=== PATIENT | male | born 1950 | race Caucasian/White ===

== ENCOUNTER 2023-04-15 12:16 | Inpatient (IN) ==
--- NOTE | 2023-04-15 12:30 | Emergency Department Note ---
Impression & Plan Chest pain, Abnormal EKG, Aortic root dilatation ED Provider Note NAME: SILVANO RUTH AGE: 72 SEX: M : 1950 ARRIVES VIA: Ambulance INFORMANT: Patient, ED PROVIDER(S): Marcio Mcbride DO CHIEF COMPLAINT: Chest pain HPI: The patient is a 72-year-old male who presented to the emergency department with an acute onset of chest pain at 9:00 this morning. The patient was unsure why he was having this pain. He had pain across his shoulders and into his upper chest. He also had pain into his back. He states he started having pain in his upper abdomen as well. He took an antibiotic because he thought this might help. He started noticing difficulty swallowing. When prehospital personnel arrived they called medic command. They were unsure if this was an allergic reaction or cardiac issue. The patient received aspirin prior to arrival. He also received Benadryl Solu-Medrol and morphine. He states his pain is significantly improved at this time. He denies having any vomiting. He states he has no history of similar pain in the past ROS: See above HPI for pertinent positives & negatives. A total of 10 systems reviewed and were otherwise negative. PAST MEDICAL HISTORY: See Below PAST SURGICAL HISTORY: See Below FAMILY HISTORY: See Below SOCIAL HISTORY: See Below HOME MEDICATIONS: See Below ALLERGIES: See Below VITALS: See Below PHYSICAL EXAMINATION: GENERAL: Patient is awake alert in no acute distress patient is resting comfortably and showing no signs of anxiety EYES: The conjunctivae are clear. The pupils are round and reactive. EARS, NOSE, MOUTH AND THROAT: The nose is without any evidence of any deformity. Mucous membranes are moist. Tongue is midline. NECK: The neck is nontender and supple. RESPIRATORY: Normal respiratory effort is noted there is no evidence of wheezing rhonchi or rales CARDIOVASCULAR: Regular rate and rhythm noted there no murmurs rubs or gallops normal S1 normal S2. GASTROINTESTINAL: The abdomen is soft. Abdomen is nontender. PELVIS: The Pelvis is stable. No tenderness to palpation is noted. BACK: No midline tenderness or or step-off noted range of motion in flexion extension as well as rotation no signs of muscle spasm noted MUSCULOSKELETAL/EXTREMITIES: There is no evidence of gross deformity full range of motion is noted in the hips and shoulders. SKIN: There is no obvious evidence of any rash. There are no petechiae, pallor or cyanosis noted. NEUROLOGIC: Patient is awake alert and oriented x3 strength is symmetric patellar reflexes are 2+ bilaterally MEDICAL DECISION MAKING: The patient is a 72-year-old male who presented to the emergency department for chest pain. The patient had an acute onset of chest pain prior to arrival. The patient's initial EKG did show some nonspecific ST segment abnormalities. Prehospital EKG was also reviewed. There is no significant change compared to previous EKG on multiple EKG tracings obtained in the emergency department. Initial troponin was normal. Given the patient's history of an enlarged aortic root as well as his back pain radiographic studies were obtained to rule out dissection. The patient's condition was also treated with IV heparin as well as IV pain medication and Ativan. On reevaluation he was somewhat improved. I discussed patient's laboratory and radiographic studies with him. I discussed the limitations of the emergency department workup for chest pain with him. I also discussed his condition with the on-call [facility] hospitalist group as well as the on-call [facility] certified bench jeweler technician. Triage Nursing notes reviewed. Prior medical records reviewed Vital Signs: reviewed and remarkable for elevated blood pressure. Differential diagnosis: Cardiac ischemia, aortic dissection, pulmonary embolism, pneumothorax, pneumonia, pericarditis, myocarditis, esophageal rupture, GERD, cholecystitis, pancreatitis, musculoskeletal, as well as other pathologies. ER treatment provided: See below Diagnostics interpreted by me: ECG: EKG was obtained in the emergency department. My interpretation is normal sinus rhythm at 91 bpm. There is no ectopy. Inferior and lateral ST depressions were noted. This was compared to a tracing from May 22, 2021. No changes were noted. Prehospital EKG was reviewed. My interpretation is sinus tachycardia at 101 bpm. There is no ectopy. Inferior and lateral ST depressions were noted. This compares similar to the tracing obtained in the emergency department. A second EKG was obtained in the emergency department. My interpretation is normal sinus rhythm at 100 bpm. There was no ectopy. ST segment depression was noted in the apical and low lateral leads. This appears similar but may be somewhat increased compared to the earlier tracing obtained in the emergency department. Cardiac Monitoring: An order was placed for continuous cardiac monitoring. The monitor shows a rate of 87 bpm with sinus rhythm. Laboratory studies: As stated above and show below. Imaging studies: See below. Radiographic imaging was reviewed by myself Consultation(s): I discussed this case with Dr. Chopra who is on-call for the [facility] hospitalist group. I discussed this case with Dr. Valle who is on-call for the [facility] cardiology group. ED COURSE: Procedures: none Critical Care: I have personally spent greater than 45 minutes of critical care time in the direct management of this patient. This includes bedside care, interpretation of diagnostic studies, and testing, discussion with consultants, patient, and family members, and other required patient management activities. This 45 minutes is in excess of all separately billable procedures. Past Med/Surg History Medical History Cervical disc disorder with myelopathy Collapsed lung S/p most recent cervical fusion 05/18/2021 - right thoravent placed @ [facility] ER 05/24/21 for right sided pneumothorax (resolution of pneumothorax per 05/26/21 CXR) Hypertension Incomplete right bundle branch block (RBBB) Follows w/ Dr Elizondo last visit 04/2021 Enlarged aorta F/U DR ELIZONDO ANNUALLY- BORDERLINE ENLARGEMENT OF ASCENDING AORTA (3.8CM) AND AORTIC ROOT (3.9CM) PER 11/03/20 ECHO Spinal stenosis PAIN TO BILAT LEGS Hyperlipidemia Surgical History S/P cataract extraction b/l S/P chest tube placement 05/2021 [facility] S/P inguinal hernia repair S/P laminectomy Pilonidal cyst REMOVAL OF S/P wrist surgery GANGLION Hx of hand surgery R/L History of repair of rotator cuff R/L Fusion of spine CERVICAL-x 3 last one 04/2021 @ [facility] History of colonoscopy Family History Brother Prostate cancer Hypertension Social History Smoking Status: Former smoker Second Hand Exposure: No; Do You Dip or Chew Tobacco: No; Hx Alcohol Use: Yes Alcohol type: beer Hx Substance Use: No Preferred Language: Divehi Communication Ability: Effective Operations Expert Required: No Beliefs That Will Affect Care: None Current Living Situation: Spouse current occupational status: employed Feels Safe at Home: Yes Assistive Devices: Glasses and Hearing Aid - Bilateral Allergies Allergies Allergy/AdvReac Type Severity Reaction Status Date / Time No Known Allergies Allergy Unknown NO Verified 04/03/23 10:24 Home Meds Home Medications Medication Instructions Recorded Confirmed ascorbic acid (vitamin C) 500 mg 1,000 mg PO QAM 04/11/19 04/03/23 tablet (Vitamin C) cholecalciferol (vitamin D3) 25 1,000 unit PO QAM 04/11/19 04/03/23 mcg (1,000 unit) capsule (Vitamin D3) cyanocobalamin (vitamin B-12) 500 500 mcg PO QAM 04/11/19 04/03/23 mcg tablet glucosamine sulf dipot 1 cap PO QAM 04/11/19 04/03/23 chlr,msm,chond 550 mg-C 30 mg-jes 1 mg capsule (Glucosamine Chondroitin) multivitamin 1 tab PO QAM 04/11/19 04/03/23 atorvastatin 20 mg tablet (Lipitor) 20 mg PO QDL 05/22/21 04/03/23 lisinopril 10 mg tablet 10 mg PO QAM 05/22/21 04/03/23 finasteride 5 mg tablet 5 mg PO 04/03/23 04/03/23 Previous Rx's Medication Instructions Recorded vibegron 75 mg tablet 75 mg PO DAILY #90 tabs 04/03/23 Results & Data (ED) Vital Signs Vital Signs - 24 hr 04/15/23 12:25 04/15/23 12:25 04/15/23 13:00 Temperature 37.2 C Temperature Source Oral Pulse Rate 97 H 96 H Pulse Rate from SpO2 Sensor Pulse Rhythm Regular Pulse Strength Normal Respiratory Rate 20 Respiratory Effort / Characteristics Non-Labored Respiratory Depth Normal Respiratory Pattern Regular Blood Pressure 211/97 H Blood Pressure Mean 135 Pulse Oximetry 97 97 Oxygen Delivery Method Room Air Room Air Sepsis Recent Fever Within 48 Hours No Sepsis New/Unexplained Change in Mental Status No Sepsis Action Taken by Nursing No Action Required 04/15/23 13:00 04/15/23 14:00 Temperature Temperature Source Pulse Rate 94 H 87 Pulse Rate from SpO2 Sensor 94 H 87 Pulse Rhythm Pulse Strength Respiratory Rate 23 15 Respiratory Effort / Characteristics Respiratory Depth Respiratory Pattern Blood Pressure 180/104 H 141/101 H Blood Pressure Mean 129 114 Pulse Oximetry 97 100 Oxygen Delivery Method Sepsis Recent Fever Within 48 Hours Sepsis New/Unexplained Change in Mental Status Sepsis Action Taken by Skilled Nursing Medications Current Medication List: was personally reviewed by me Laboratory Data Attestation: I reviewed the patient's lab results. 04/15/23 12:24 04/15/23 12:24 Lab Results 04/15/23 04/15/23 Range/Units 12:24 12:29 WBC 8.66 (4.8-10.8) K/ul RBC 4.50 L (4.70-6.10) M/uL Hgb 13.5 L (14.0-18.0) g/dl POC Hgb 13.6 L (14.0-18.0) g/dl Hct 39.5 L (42.0-52.0) % POC Hct 40 L (42-52) % MCV 87.8 (80.0-100.0) fL MCH 30.0 (25.0-34.0) pg MCHC 34.2 (32.0-36.0) g/dL RDW Std Deviation 38.1 (36.4-46.3) fL RDW Coeff of Gael 11.8 (11.5-14.5) % Plt Count 177 (130-400) K/uL MPV 9.5 (9.4-12.4) fL Immature Gran % (Auto) 0.1 % Neut % (Auto) 75.2 % Lymph % (Auto) 17.0 % Sutter % (Auto) 6.7 % Eos % (Auto) 0.5 % Baso % (Auto) 0.5 % Neut # (Auto) 6.52 H (1.40-6.50) K/uL Lymph # (Auto) 1.47 (1.20-3.40) K/uL Sutter # (Auto) 0.58 (0.11-0.59) K/uL Eos # (Auto) 0.04 (0.00-0.50) K/uL Baso # (Auto) 0.04 (0.00-0.20) K/uL Immature Gran # (Auto) 0.01 (0.01-0.20) K/uL POC Sodium 141 (135-144) mmol/L Sodium 139 (136-145) mmol/L POC Potassium 3.9 (3.3-5.0) mmol/L Potassium 3.8 (3.5-5.1) mmol/L POC Chloride 103 (101-112) mmol/L Chloride 104 (98-107) mmol/L Carbon Dioxide 26 (21-32) mmol/L POC Total CO2 28 (24-31) mmol/L Anion Gap 9 (3-11) POC Anion Gap 15.0 L (16-25) mmol/L POC BUN 19 H (7-18) mg/dl BUN 20 (6-23) mg/dl Creatinine 0.76 (0.6-1.4) mg/dl POC Creatinine 0.7 (0.6-1.3) mg/dl Est Cr Clr Drug Dosing 103.0 ml/min Est GFR ( Amer) 104.9 ml/min Est GFR (Non-Af Amer) 90.5 ml/min BUN/Creatinine Ratio 26.3 H (10-20) Glucose 185 H (70-99(Fasting)) mg/dl POC Glucose (other) 191 H (70-99) mg/dl Calcium 9.2 (8.6-10.3) mg/dl POC Ioniz Calcium Caity 1.17 (1.12-1.32) mmol/l Total Bilirubin 0.6 (0.2-1.0) mg/dl AST 18 (13-39) U/L ALT 19 (7-52) U/L Alkaline Phosphatase 59 (34-104) U/L Troponin I High Sens 3.7 (0-20) pg/ml Total Protein 7.4 (6.0-8.3) gm/dl Albumin 4.5 (3.4-5.0) gm/dl Globulin 2.9 (2.5-4.0) gm/dl Albumin/Globulin Ratio 1.6 (0.9-2) Lipase 27 (11-82) U/L Administered Medications Heparin Sodium/Dextrose (Heparin Sodium/Dextrose) 25,000 units in 500 mls @ 20 mls/hr IV .Q24H [facility]; Protocol Stop: 05/15/23 14:14 Last Admin: 04/15/23 14:36 Dose: 1,000 units/hr, 20 mls/hr Documented By: MILAN Co-signed By: OAC Discontinued Medications Heparin Sodium (Porcine) (Heparin Sod (Porcine) 1000 Unit/Ml) 1 units IV NOW ONE Stop: 04/15/23 14:12 Last Admin: 04/15/23 14:36 Dose: 4,000 units Documented By: MILAN Co-signed By: CRIS Sodium Chloride (Nss) 500 mls @ 999 mls/hr IV .Q31M STA Stop: 04/15/23 12:52 Last Infusion: 04/15/23 13:28 Dose: Infused Documented By: Admin: 04/15/23 12:32 Dose: 999 mls/hr Documented By: CRIS Ioversol (Optiray 320 125ml) 118 ml IV ONCE ONE Stop: 04/15/23 12:42 Last Admin: 04/15/23 12:41 Dose: 118 ml Documented By: RONI Lorazepam (Lorazepam 1 Mg/1 Ml Syr Ed Inj Use) 1 mg IV ONE STA Stop: 04/15/23 13:29 Last Admin: 04/15/23 13:33 Dose: 1 mg Documented By: CRIS Morphine Sulfate (Morphine Sulfate 4 Mg/Ml 1 Ml Carp\Vial) 4 mg IV NOW STA Stop: 04/15/23 12:24 Last Admin: 04/15/23 12:31 Dose: 4 mg Documented By: CRIS Morphine Sulfate (Morphine Sulfate 4 Mg/Ml 1 Ml Carp\Vial) 4 mg IV NOW STA Stop: 04/15/23 13:29 Last Admin: 04/15/23 13:33 Dose: 4 mg Documented By: CRIS Ondansetron HCl (Ondansetron Inj 2 Mg/Ml 2 Ml Vial) 4 mg IV NOW STA Stop: 04/15/23 12:24 Last Admin: 04/15/23 12:31 Dose: 4 mg Documented By: CRIS Imaging Data Attestation: I personally reviewed and interpreted this imaging study as follows: My Impression: CT scanning of the chest abdomen pelvis was reviewed by myself. My interpretation is enlargement of the ascending aorta, there is no free air, there is no signs of bowel obstruction, final report below. Radiologist's Impression: Abdomen/Pelvis CT 04/15/23 12:22 CT SCAN OF THE ABDOMEN AND PELVIS WITH IV CONTRAST CLINICAL HISTORY: Generalized abdominal pain. COMPARISON STUDY: No priors. TECHNIQUE: Following the IV administration of 118 cc of Optiray 320, CT scan of the abdomen and pelvis is performed from the lung bases to the proximal femora. Images are reviewed in the axial, sagittal, and coronal planes. IV contrast was administered without complication. A dose lowering technique was utilized adhering to the principles of ALARA. The examination is degraded by motion artifact, as well as by streak artifact from the arms which could not be elevated above the abdomen. FINDINGS: Lung bases: The heart is normal in size and without pericardial effusion. Emphysematous change is noted. There is bibasilar scarring/atelectasis. The lung bases are otherwise clear. Liver: The contrast-enhanced liver is normal in size and contour. The liver demonstrates diffusely diminished attenuation indicating steatosis. Fatty sparing is seen adjacent to the gallbladder fossa. There is no intrahepatic biliary ductal dilatation. The hepatic veins and portal veins are patent. A 2.4 cm hemangioma seen on image #20 and 13 of the concurrently performed chest CT. Gallbladder: Unremarkable. Spleen: Normal in size and attenuation. There are calcifications of the splenic capsule. Pancreas: Unremarkable. Adrenal glands: Unremarkable. Kidneys: The contrast enhanced kidneys are normal in size and without hydronephrosis. The kidneys enhance symmetrically. A 5.8 cm cyst is seen on the left. Abdominal vasculature: The abdominal aorta is normal in course and caliber noting moderate to advanced atherosclerotic calcification. Bowel: There is moderate to advanced colic diverticulosis without CT evidence of acute diverticulitis. No bowel obstruction is seen. The appendix is well- visualized and normal. Peritoneum: There is no intraperitoneal free air or abdominal ascites. There is a fat-containing umbilical hernia. Lymphadenopathy: There is a mildly enlarged gastrohepatic node seen on image #82. This measures 11 mm short axis. No Additional enlarged lymph nodes are seen in the abdomen or pelvis. Pelvic viscera: The prostate gland is diminutive and heterogeneous. The bladder wall appears thickened/trabeculated indicating chronic outlet obstruction. Skeletal structures: The skeletal structures are osteopenic. There is mild lumbosacral spondylosis. No lytic or blastic lesions are seen. IMPRESSION: 1. No acute infectious or inflammatory findings are identified in the abdomen or pelvis. 2. Hepatic steatosis. 3. A mildly enlarged upper abdominal lymph node is of indeterminate etiology and significance. Clinical correlation will be required. 4. Colonic diverticulosis without CT evidence of acute diverticulitis. 5. Additional findings as above. ACT 112: Negative or not required by law. Electronically signed by: Jerry Ni M.D. 04/15/2023 1:00 PM Chest CTA 04/15/23 12:22 CT ANGIOGRAM OF THE CHEST COMBO CLINICAL HISTORY: Atypical chest pain. Back pain. COMPARISON STUDY: Chest x-ray dated 05/24/2021. TECHNIQUE: Before and following the IV administration of 118 cc of Optiray 320, CT angiogram of the chest was performed from the thoracic inlet to the upper abdomen utilizing the dissection protocol. Images are reviewed in the axial, sagittal, and coronal planes. 3-D MIPS images are created and assessed. IV contrast was administered without complication. A dose lowering technique was utilized adhering to the principles of ALARA. The examination is degraded by motion artifact, as well as by streak artifact from the arms which could not be elevated above the chest. CT DOSE: 4158.18 mGy.cm FINDINGS: Thyroid: Imaged portions of the thyroid gland are normal in size and attenuation. Thoracic aorta: No intramural hematoma is seen on the unenhanced series. There is atherosclerotic calcification of the thoracic aorta, which is normal in caliber and demonstrates bovine variant arch anatomy. No dissection is seen. The arch vessels are widely patent. Pulmonary vasculature: The pulmonary trunk is normal in caliber. There are no central filling defects identified in the pulmonary vessels to suggest pulmonary embolus. Note that this examination was not specifically protocoled to assess for pulmonary emboli. Heart: The heart is top normal in size and without pericardial effusion. The coronary arteries are densely calcified. Lungs and pleural spaces: Emphysematous change is noted. There is no airspace consolidation or pleural effusion. The trachea and central airways are clear. Foci of probable scarring are seen throughout both lungs, greatest at the lung bases. Subpleural scarring and calcified pleural plaque is seen in the anterior left lung. Subsolid pleural thickening is seen along the minor fissure on image #143. This measures up to 2.3 cm in length. Mediastinum: There is no mediastinal lymphadenopathy. Ruthann: Clear. Axillae: There is no axillary lymphadenopathy. Upper abdomen: A 2.4 cm hepatic hemangioma as seen on image #213. The liver appears stated ptotic. A mildly enlarged gastrohepatic node measures 11 mm short axis as seen on image #249. Skeletal structures: The skeletal structures are osteopenic. No lytic or blastic bony lesions are seen. Fusion hardware is noted at the cervicothoracic junction. Advanced arthritic change is seen in the shoulders. IMPRESSION: 1. Unremarkable CT angiogram of the thoracic aorta. 2. Emphysema. 3. There is no airspace consolidation typical for pneumonia or pleural effusion. 4. There is a focus of subsolid pleural thickening on the right minor fissure as above. This is not highly suspicious; however, a precautionary 6-month follow-up chest CT is recommended for reassessment. 5. Advanced coronary artery atherosclerosis. 6. Additional findings as above. ACT 112: Positive. There are findings on this exam that require communication between the performing entity and the patient following Patient Test Result Information Act ([place] Act 112) guidelines. Electronically signed by: Jerry Ni M.D. 04/15/2023 1:08 PM Discharge Plan Visit Data Chief Complaint: Chest Pain ED Provider: Marcio Mcbride Discharge Problem: Chest pain, Abnormal EKG, Aortic root dilatation Patient Disposition: Being Evaluated by Hospitalist Forms Stand Alone Forms: [facility] Prescriptions Prescriptions: No Action vibegron 75 mg tablet 75 mg PO DAILY Qty: 90 3RF finasteride 5 mg tablet 5 mg PO multivitamin Tablet 1 tab PO QAM ascorbic acid (vitamin C) [Vitamin C] 500 mg Tablet 1,000 mg PO QAM cholecalciferol (vitamin D3) [Vitamin D3] 25 mcg (1,000 unit) Capsule 1,000 unit PO QAM Glucosamine Chondroitin 550-30-1 mg Capsule 1 cap PO QAM Patient Comments: 1500 mg daily cyanocobalamin (vitamin B-12) 500 mcg Tablet 500 mcg PO QAM lisinopril 10 mg tablet 10 mg PO QAM atorvastatin [Lipitor] 20 mg tablet 20 mg PO QDL Referrals Referrals: Eric Lindquist MD [Primary Care Provider] - Discharge Problem: Chest pain Qualifiers: Chest pain type: unspecified Qualified Code(s): R07.9 - Chest pain, unspecified
[2023-04-15] MEDS: ONDANSETRON INJ 2 MG/ML 2 ML VIAL IV STA (12:31)
[2023-04-15] MEDS: MoRPHine SULFATE 4 MG/ML 1 ML CARP\\VIAL IV STA ×2 (12:31→13:33)
[2023-04-15] MEDS: SODIUM CHLORIDE 0.9% 500 ML IV STA (12:32)
[2023-04-15] MEDS: OPTIRAY 320 125ml IV ONE (12:41)
[2023-04-15 12:42] LABS: iSTAT Creatinine 0.7 mg/dl (0.6-1.3); iSTAT Hemoglobin 13.6 g/dl (14.0-18.0); iSTAT Ionized Calcium 1.17 mmol/l (1.12-1.32); iSTAT Potassium 3.9 mmol/L (3.3-5.0)
[2023-04-15 12:53] LABS: Basophils # (auto) 0.04 K/uL (0.00-0.20); Basophils % (auto) 0.5 %; Eosinophils # (auto) 0.04 K/uL (0.00-0.50); Eosinophils % (auto) 0.5 %; Hematocrit (blood only) 39.5 % (42.0-52.0); Hemoglobin 13.5 g/dl (14.0-18.0); Immature Granulocytes # (auto) 0.01 K/uL (0.01-0.20); Immature Granulocytes % (auto) 0.1 %; Lymphocytes # (auto) 1.47 K/uL (1.20-3.40); Mean Corpuscular Hgb Conc 34.2 g/dL (32.0-36.0); Mean Corpuscular Volume 87.8 fL (80.0-100.0); Mean Platelet Volume 9.5 fL (9.4-12.4); Monocytes # (auto) 0.58 K/uL (0.11-0.59); Monocytes % (auto) 6.7 %; Neutrophils # (auto) 6.52 K/uL (1.40-6.50); Neutrophils % (auto) 75.2 %; Platelet Count 177 K/uL (130-400); RDW Coefficient of Variation 11.8 % (11.5-14.5); RDW Standard Deviation 38.1 fL (36.4-46.3); White Blood Count 8.66 K/ul (4.8-10.8)
--- NOTE | 2023-04-15 13:02 | CT Scan Report ---
CT SCAN OF THE ABDOMEN AND PELVIS WITH IV CONTRAST CLINICAL HISTORY: Generalized abdominal pain. COMPARISON STUDY: No priors. TECHNIQUE: Following the IV administration of 118 cc of Optiray 320, CT scan of the abdomen and pelv is is performed from the lung bases to the proximal femora. Images are reviewed in the axial, sagitta l, and coronal planes. IV contrast was administered without complication. A dose lowering technique w as utilized adhering to the principles of ALARA. The examination is degraded by motion artifact, as w ell as by streak artifact from the arms which could not be elevated above the abdomen. FINDINGS: Lung bases: The heart is normal in size and without pericardial effusion. Emphysematous change is not ed. There is bibasilar scarring/atelectasis. The lung bases are otherwise clear. Liver: The contrast-enhanced liver is normal in size and contour. The liver demonstrates diffusely di minished attenuation indicating steatosis. Fatty sparing is seen adjacent to the gallbladder fossa. T here is no intrahepatic biliary ductal dilatation. The hepatic veins and portal veins are patent. A 2 .4 cm hemangioma seen on image #20 and 13 of the concurrently performed chest CT. Gallbladder: Unremarkable. Spleen: Normal in size and attenuation. There are calcifications of the splenic capsule. Pancreas: Unremarkable. Adrenal glands: Unremarkable. Kidneys: The contrast enhanced kidneys are normal in size and without hydronephrosis. The kidneys enh ance symmetrically. A 5.8 cm cyst is seen on the left. Abdominal vasculature: The abdominal aorta is normal in course and caliber noting moderate to advance d atherosclerotic calcification. Bowel: There is moderate to advanced colic diverticulosis without CT evidence of acute diverticulitis . No bowel obstruction is seen. The appendix is well-visualized and normal. Peritoneum: There is no intraperitoneal free air or abdominal ascites. There is a fat-containing umbi lical hernia. Lymphadenopathy: There is a mildly enlarged gastrohepatic node seen on image #82. This measures 11 mm short axis. No Additional enlarged lymph nodes are seen in the abdomen or pelvis. Pelvic viscera: The prostate gland is diminutive and heterogeneous. The bladder wall appears thickene d/trabeculated indicating chronic outlet obstruction. Skeletal structures: The skeletal structures are osteopenic. There is mild lumbosacral spondylosis. N o lytic or blastic lesions are seen. IMPRESSION: 1. No acute infectious or inflammatory findings are identified in the abdomen or pelvis. 2. Hepatic steatosis. 3. A mildly enlarged upper abdominal lymph node is of indeterminate etiology and significance. Clinic al correlation will be required. 4. Colonic diverticulosis without CT evidence of acute diverticulitis. 5. Additional findings as above. ACT 112: Negative or not required by law. Electronically signed by: Jerry Ni M.D. 04/15/2023 1:00 PM
--- NOTE | 2023-04-15 13:10 | CT Scan Report ---
CT ANGIOGRAM OF THE CHEST COMBO CLINICAL HISTORY: Atypical chest pain. Back pain. COMPARISON STUDY: Chest x-ray dated 05/24/2021. TECHNIQUE: Before and following the IV administration of 118 cc of Optiray 320, CT angiogram of the c hest was performed from the thoracic inlet to the upper abdomen utilizing the dissection protocol. Im ages are reviewed in the axial, sagittal, and coronal planes. 3-D MIPS images are created and assesse d. IV contrast was administered without complication. A dose lowering technique was utilized adherin g to the principles of ALARA. The examination is degraded by motion artifact, as well as by streak ar tifact from the arms which could not be elevated above the chest. CT DOSE: 4158.18 mGy.cm FINDINGS: Thyroid: Imaged portions of the thyroid gland are normal in size and attenuation. Thoracic aorta: No intramural hematoma is seen on the unenhanced series. There is atherosclerotic lennox cification of the thoracic aorta, which is normal in caliber and demonstrates bovine variant arch patrizia daniel. No dissection is seen. The arch vessels are widely patent. Pulmonary vasculature: The pulmonary trunk is normal in caliber. There are no central filling defects identified in the pulmonary vessels to suggest pulmonary embolus. Note that this examination was not specifically protocoled to assess for pulmonary emboli. Heart: The heart is top normal in size and without pericardial effusion. The coronary arteries are de nsely calcified. Lungs and pleural spaces: Emphysematous change is noted. There is no airspace consolidation or pleura l effusion. The trachea and central airways are clear. Foci of probable scarring are seen throughout both lungs, greatest at the lung bases. Subpleural scarring and calcified pleural plaque is seen in t he anterior left lung. Subsolid pleural thickening is seen along the minor fissure on image #143. Thi s measures up to 2.3 cm in length. Mediastinum: There is no mediastinal lymphadenopathy. Ruthann: Clear. Axillae: There is no axillary lymphadenopathy. Upper abdomen: A 2.4 cm hepatic hemangioma as seen on image #213. The liver appears stated ptotic. A mildly enlarged gastrohepatic node measures 11 mm short axis as seen on image #249. Skeletal structures: The skeletal structures are osteopenic. No lytic or blastic bony lesions are see n. Fusion hardware is noted at the cervicothoracic junction. Advanced arthritic change is seen in the shoulders. IMPRESSION: 1. Unremarkable CT angiogram of the thoracic aorta. 2. Emphysema. 3. There is no airspace consolidation typical for pneumonia or pleural effusion. 4. There is a focus of subsolid pleural thickening on the right minor fissure as above. This is not h ighly suspicious; however, a precautionary 6-month follow-up chest CT is recommended for reassessment . 5. Advanced coronary artery atherosclerosis. 6. Additional findings as above. ACT 112: Positive. There are findings on this exam that require communication between the performing entity and the patient following Patient Test Result Information Act ([place] Act 112) guidelines. Electronically signed by: Jerry Ni M.D. 04/15/2023 1:08 PM
[2023-04-15 13:11] LABS: Albumin Globulin Ratio 1.6 (0.9-2); Albumin Level 4.5 gm/dl (3.4-5.0); BUN Creatinine Ratio 26.3 (10-20); Bilirubin,Total 0.6 mg/dl (0.2-1.0); Calcium 9.2 mg/dl (8.6-10.3); Est GFR (African American) 104.9 ml/min; Est GFR (Non-African American) 90.5 ml/min; Globulin 2.9 gm/dl (2.5-4.0); Potassium 3.8 mmol/L (3.5-5.1); Total Protein 7.4 gm/dl (6.0-8.3)
[2023-04-15 13:18] LABS: Troponin I High Sensitivity 3.7 pg/ml (0-20)
[2023-04-15] MEDS: LORazepam 1 MG/1 ML SYR ED Inj Use IV STA (13:33)
--- NOTE | 2023-04-15 14:25 | History & Physical Report ---
Date of Service April 15, 2023 Assessment & Plan (1) Chest pain: Plan: 70-year-old male with past medical history significant for hyperlipidemia, enlarged thoracic aorta, history of non-rheumatic mitral regurgitation, incomplete right bundle-branch block, hypertension, BPH, overactive bladder, osteoarthritis, lumbar radiculopathy, HTN, cervical spine stenosis, lumbar spinal stenosis, history of colonic polyps, overweight, chronic b/l shoulder pain, Hx Pneumothorax present to the ED with chest pain Pain seems to be related to chronic shoulders pain that worsening after lifting heavy object Need to r/o ACS Troponin wnl x2 CTA chest showed unremarkable CT angiogram of the thoracic aorta. CT abd/pelvis showed no acute infectious or inflammatory findings are identified in the abdomen or pelvis. IV heparin drip was started in the ER due to ongoing chest pain and shoulders pain Received IV morphine in the ER that helped Pt is getting a stat ECHO Will trend troponin case discussed with cardiology- Low suspicious for cardiac etiology chest pain since troponin x2 negative and echo as per cardiology normal If 3r set of troponin negative, will d/c heparin drip Continue morphine and tylenol for pain Will monitor closely in telemetry Elevated glucose Will check Hb A1c Continue monitor glucose Elevated WBC Possible reactive No sign of infection Continue monitor CBC Chronic shoulders pain Cervical pain Lumbar spine pain Continue pain control with tylenol and morphine prn History of hyperlipidemia Continue statin. History of hypertension BP stable Continue lisinopril. BPH Continue proscar Will monitor for any urinary retention. Deep venous thrombosis prophylaxis Currently on heparin drip Code status Full code History of Present Illness Chief Complaint: Chest pain Primary Care Provider: Eric Lindquist MD 70-year-old male with past medical history significant for hyperlipidemia, enlarged thoracic aorta, history of non-rheumatic mitral regurgitation, incomplete right bundle-branch block, hypertension, BPH, overactive bladder, osteoarthritis, lumbar radiculopathy, HTN, cervical spine stenosis, lumbar spinal stenosis, history of colonic polyps, overweight, chronic b/l shoulder pain, Hx Pneumothorax present to the ED with chest pain. Pt said that this morning while walking to his properties he developed left side shoulder pain, then right sided shoulder pain. he said that he has chronic shoulder pain, but today the pain were intense then associated with chest pain. Pt described the chest pain as a sharp and burning feeling that located in the mid sternum area. Pt said chest pain and shoulders pain started 5 minutes after lifting about 50 lbs weight. said that he is not supposed to lift any heavy object. Pt replied that he thinks it was about 35 lbs. Pt said that he feels he had some breathing problems. Morphine IV given in the ER, helped with the pain. Currently denies any fever, chills, dizziness, palpitation and SOB and dysuria. CT showed unremarkable CT angiogram of the thoracic aorta. no airspace consolidation typ ical for pneumonia or pleural effusion. focus of subsolid pleural thickening on the right minor fissure. CT abd/pelvis showed no acute infectious or inflammatory findings are identified in the abdomen or pelvis. Lab showed normal troponin, lipase, LFT. EKG showed no acute ischemic changes. Due to ongoing chest discomfort, pt was starting on IV heparin drip by the ER provider Allergies Allergy/AdvReac Type Severity Reaction Status Date / Time vibegron AdvReac Intermediate Flushing Verified 04/15/23 14:45 Home Medications Medication Instructions Recorded Confirmed Type ascorbic acid (vitamin C) 500 mg 1,000 mg PO QAM 04/11/19 04/15/23 History tablet (Vitamin C) cholecalciferol (vitamin D3) 25 1,000 unit PO QAM 04/11/19 04/15/23 History mcg (1,000 unit) capsule (Vitamin D3) cyanocobalamin (vitamin B-12) 500 500 mcg PO QAM 04/11/19 04/15/23 History mcg tablet glucosamine sulf dipot 1 cap PO QAM 04/11/19 04/15/23 History chlr,msm,chond 550 mg-C 30 mg-jes 1 mg capsule (Glucosamine Chondroitin) multivitamin 1 tab PO QAM 04/11/19 04/15/23 History atorvastatin 20 mg tablet (Lipitor) 20 mg PO QPM 05/22/21 04/15/23 History lisinopril 10 mg tablet 10 mg PO QAM 05/22/21 04/15/23 History finasteride 5 mg tablet 5 mg PO QAM 04/03/23 04/15/23 History vibegron 75 mg tablet 75 mg PO DAILY #90 tabs 04/03/23 04/03/23 Rx Past Med/Surg History Medical History Cervical disc disorder with myelopathy Collapsed lung S/p most recent cervical fusion 05/18/2021 - right thoravent placed @ [facility] ER 05/24/21 for right sided pneumothorax (resolution of pneumothorax per 05/26/21 CXR) Hypertension Incomplete right bundle branch block (RBBB) Follows w/ Dr Elizondo last visit 04/2021 Enlarged aorta F/U DR ELIZONDO ANNUALLY- BORDERLINE ENLARGEMENT OF ASCENDING AORTA (3.8CM) AND AORTIC ROOT (3.9CM) PER 11/03/20 ECHO Spinal stenosis PAIN TO BILAT LEGS Hyperlipidemia Surgical History S/P cataract extraction b/l S/P chest tube placement 05/2021 [facility] S/P inguinal hernia repair S/P laminectomy Pilonidal cyst REMOVAL OF S/P wrist surgery GANGLION Hx of hand surgery R/L History of repair of rotator cuff R/L Fusion of spine CERVICAL-x 3 last one 04/2021 @ [facility] History of colonoscopy Family History Brother Prostate cancer Hypertension Social History Smoking Status: Former smoker Second Hand Exposure: No; Do You Dip or Chew Tobacco: No; Hx Alcohol Use: Yes Alcohol type: beer Hx Substance Use: No Preferred Language: Maori Communication Ability: Effective Check Scaler Required: No Beliefs That Will Affect Care: None Current Living Situation: Spouse current occupational status: employed Feels Safe at Home: Yes Assistive Devices: Glasses and Hearing Aid - Bilateral Review of Systems Review of Systems: All systems reviewed & are unremarkable except as noted in HPI & below Physical Exam Physical Exam: General- No acute distress Head- atraumatic Eyes- PERRL, EOMI, ENT- oropharynx clear Neck- supple, no JVD Lungs- clear to auscultation Heart- regular rhythm; Abdomen- normal bowel sounds, soft, +tender with deep palpation Extremities- no calf tenderness, left shoulder pain with palpation Neuro- alert, oriented x 3; PERRL, EOMI; no facial palsy; no dysarthria Skin- warm & dry Results & Data Results & Data Vital Signs (Past 12 Hours) Vital Signs Temp Pulse Resp BP Pulse Ox O2 Del Method 04/15/23 14:00 87 15 141/101 H 100 04/15/23 13:00 94 H 23 180/104 H 97 04/15/23 13:00 96 H 04/15/23 12:25 97 Room Air 04/15/23 12: 37.2 C 97 H 20 211/97 H 97 Room Air Diagnostic Findings Laboratory Results WBC 8.66 K/ul (4.8-10.8) 04/15/23 12: RBC 4.50 M/uL (4.70-6.10) L 04/15/23 12:24 Hgb 13.5 g/dl (14.0-18.0) L 04/15/23 12: POC Hgb 13.6 g/dl (14.0-18.0) L 04/15/23 12:29 Hct 39.5 % (42.0-52.0) L 04/15/23 12: POC Hct 40 % (42-52) L 04/15/23 12: MCV 87.8 fL (80.0-100.0) 04/15/23 12: MCH 30.0 pg (25.0-34.0) 04/15/23 12: MCHC 34.2 g/dL (32.0-36.0) 04/15/23 12: RDW Std Deviation 38.1 fL (36.4-46.3) 04/15/23 12: RDW Coeff of Gael 11.8 % (11.5-14.5) 04/15/23 12: Plt Count 177 K/uL (130-400) 04/15/23 12: MPV 9.5 fL (9.4-12.4) 04/15/23 12:24 Immature Gran % (Auto) 0.1 % 04/15/23 12:24 Neut % (Auto) 75.2 % 04/15/23 12:24 Lymph % (Auto) 17.0 % 04/15/23 12: Millard % (Auto) 6.7 % 04/15/23 12:24 Eos % (Auto) 0.5 % 04/15/23 12:24 Baso % (Auto) 0.5 % 04/15/23 12:24 Neut # (Auto) 6.52 K/uL (1.40-6.50) H 04/15/23 12:24 Lymph # (Auto) 1.47 K/uL (1.20-3.40) 04/15/23 12:24 Millard # (Auto) 0.58 K/uL (0.11-0.59) 04/15/23 12:24 Eos # (Auto) 0.04 K/uL (0.00-0.50) 04/15/23 12:24 Baso # (Auto) 0.04 K/uL (0.00-0.20) 04/15/23 12:24 Immature Gran # (Auto) 0.01 K/uL (0.01-0.20) 04/15/23 12:24 APTT 22 Seconds (21-31) 04/15/23 14:22 PTT Ratio 0.8 04/15/23 14:22 POC Sodium 141 mmol/L (135-144) 04/15/23 12:29 Sodium 139 mmol/L (136-145) 04/15/23 12:24 POC Potassium 3.9 mmol/L (3.3-5.0) 04/15/23 12:29 Potassium 3.8 mmol/L (3.5-5.1) 04/15/23 12:24 POC Chloride 103 mmol/L (101-112) 04/15/23 12:29 Chloride 104 mmol/L (98-107) 04/15/23 12:24 Carbon Dioxide 26 mmol/L (21-32) 04/15/23 12:24 POC Total CO2 28 mmol/L (24-31) 04/15/23 12:29 Anion Gap 9 (3-11) 04/15/23 12:24 POC Anion Gap 15.0 mmol/L (16-25) L 04/15/23 12:29 POC BUN 19 mg/dl (7-18) H 04/15/23 12:29 BUN 20 mg/dl (6-23) 04/15/23 12:24 Creatinine 0.76 mg/dl (0.6-1.4) 04/15/23 12:24 POC Creatinine 0.7 mg/dl (0.6-1.3) 04/15/23 12:29 Est Cr Clr Drug Dosing 103.0 ml/min 04/15/23 12:24 Est GFR ( Amer) 104.9 ml/min 04/15/23 12:24 Est GFR (Non-Af Amer) 90.5 ml/min 04/15/23 12:24 BUN/Creatinine Ratio 26.3 (10-20) H 04/15/23 12:24 Glucose 185 mg/dl (70-99(Fasting)) H 04/15/23 12:24 POC Glucose (other) 191 mg/dl (70-99) H 04/15/23 12:29 Calcium 9.2 mg/dl (8.6-10.3) 04/15/23 12:24 POC Ioniz Calcium Caity 1.17 mmol/l (1.12-1.32) 04/15/23 12: Total Bilirubin 0.6 mg/dl (0.2-1.0) 04/15/23 12:24 AST 18 U/L (13-39) 04/15/23 12:24 ALT 19 U/L (7-52) 04/15/23 12:24 Alkaline Phosphatase 59 U/L (34-104) 04/15/23 12:24 Troponin I High Sens 2.7 pg/ml (0-20) 04/15/23 14:03 Total Protein 7.4 gm/dl (6.0-8.3) 04/15/23 12:24 Albumin 4.5 gm/dl (3.4-5.0) 04/15/23 12:24 Globulin 2.9 gm/dl (2.5-4.0) 04/15/23 12:24 Albumin/Globulin Ratio 1.6 (0.9-2) 04/15/23 12:24 Lipase 27 U/L (11-82) 04/15/23 12:24 Impressions Abdomen/Pelvis CT 04/15/23 12:22 CT SCAN OF THE ABDOMEN AND PELVIS WITH IV CONTRAST CLINICAL HISTORY: Generalized abdominal pain. COMPARISON STUDY: No priors. TECHNIQUE: Following the IV administration of 118 cc of Optiray 320, CT scan of the abdomen and pelvis is performed from the lung bases to the proximal femora. Images are reviewed in the axial, sagittal, and coronal planes. IV contrast was administered without complication. A dose lowering technique was utilized adhering to the principles of ALARA. The examination is degraded by motion artifact, as well as by streak artifact from the arms which could not be elevated above the abdomen. FINDINGS: Lung bases: The heart is normal in size and without pericardial effusion. Emphy sematous change is noted. There is bibasilar scarring/atelectasis. The lung bases are otherwise clear. Liver: The contrast-enhanced liver is normal in size and contour. The liver demonstrates diffusely diminished attenuation indicating steatosis. Fatty sparing is seen adjacent to the gallbladder fossa. There is no intrahepatic biliary ductal dilatation. The hepatic veins and portal veins are patent. A 2.4 cm hemangioma seen on image #20 and 13 of the concurrently performed chest CT. Gallbladder: Unremarkable. Spleen: Normal in size and attenuation. There are calcifications of the splenic capsule. Pancreas: Unremarkable. Adrenal glands: Unremarkable. Kidneys: The contrast enhanced kidneys are normal in size and without hydronephrosis. The kidneys enhance symmetrically. A 5.8 cm cyst is seen on the left. Abdominal vasculature: The abdominal aorta is normal in course and caliber noting moderate to advanced atherosclerotic calcification. Bowel: There is moderate to advanced colic diverticulosis without CT evidence of acute diverticulitis. No bowel obstruction is seen. The appendix is well- visualized and normal. Peritoneum: There is no intraperitoneal free air or abdominal ascites. There is a fat-containing umbilical hernia. Lymphadenopathy: There is a mildly enlarged gastrohepatic node seen on image #82. This measures 11 mm short axis. No Additional enlarged lymph nodes are seen in the abdomen or pelvis. Pelvic viscera: The prostate gland is diminutive and heterogeneous. The bladder wall appears thickened/trabeculated indicating chronic outlet obstruction. Skeletal structures: The skeletal structures are osteopenic. There is mild lumbosacral spondylosis. No lytic or blastic lesions are seen. IMPRESSION: 1. No acute infectious or inflammatory findings are identified in the abdomen or pelvis. 2. Hepatic steatosis. 3. A mildly enlarged upper abdominal lymph node is of indeterminate etiology and significance. Clinical correlation will be required. 4. Colonic diverticulosis without CT evidence of acute diverticulitis. 5. Additional findings as above. ACT 112: Negative or not required by law. Electronically signed by: Jerry Ni M.D. 04/15/2023 1:00 PM Chest CTA 04/15/23 12:22 CT ANGIOGRAM OF THE CHEST COMBO CLINICAL HISTORY: Atypical chest pain. Back pain. COMPARISON STUDY: Chest x-ray dated 05/24/2021. TECHNIQUE: Before and following the IV administration of 118 cc of Optiray 320, CT angiogram of the chest was performed from the thoracic inlet to the upper abdomen utilizing the dissection protocol. Images are reviewed in the axial, sagittal, and coronal planes. 3-D MIPS images are created and assessed. IV contrast was administered without complication. A dose lowering technique was utilized adhering to the principles of ALARA. The examination is degraded by motion artifact, as well as by streak artifact from the arms which could not be elevated above the chest. CT DOSE: 4158.18 mGy.cm FINDINGS: Thyroid: Imaged portions of the thyroid gland are normal in size and attenuation. Thoracic aorta: No intramural hematoma is seen on the unenhanced series. There i s atherosclerotic calcification of the thoracic aorta, which is normal in caliber and demonstrates bovine variant arch anatomy. No dissection is seen. The arch vessels are widely patent. Pulmonary vasculature: The pulmonary trunk is normal in caliber. There are no central filling defects identified in the pulmonary vessels to suggest pulmonary embolus. Note that this examination was not specifically protocoled to assess for pulmonary emboli. Heart: The heart is top normal in size and without pericardial effusion. The coronary arteries are densely calcified. Lungs and pleural spaces: Emphysematous change is noted. There is no airspace consolidation or pleural effusion. The trachea and central airways are clear. Foci of probable scarring are seen throughout both lungs, greatest at the lung bases. Subpleural scarring and calcified pleural plaque is seen in the anterior left lung. Subsolid pleural thickening is seen along the minor fissure on image #143. This measures up to 2.3 cm in length. Mediastinum: There is no mediastinal lymphadenopathy. Ruthann: Clear. Axillae: There is no axillary lymphadenopathy. Upper abdomen: A 2.4 cm hepatic hemangioma as seen on image #213. The liver appears stated ptotic. A mildly enlarged gastrohepatic node measures 11 mm short axis as seen on image #249. Skeletal structures: The skeletal structures are osteopenic. No lytic or blastic bony lesions are seen. Fusion hardware is noted at the cervicothoracic junction. Advanced arthritic change is seen in the shoulders. IMPRESSION: 1. Unremarkable CT angiogram of the thoracic aorta. 2. Emphysema. 3. There is no airspace consolidation typical for pneumonia or pleural effusion. 4. There is a focus of subsolid pleural thickening on the right minor fissure as above. This is not highly suspicious; however, a precautionary 6-month follow-up chest CT is recommended for reassessment. 5. Advanced coronary artery atherosclerosis. 6. Additional findings as above. ACT 112: Positive. There are findings on this exam that require communication between the performing entity and the patient following Patient Test Result Information Act ([place] Act 112) guidelines. Electronically signed by: Jerry Ni M.D. 04/15/2023 1:08 PM (1) Chest pain Chest pain type: unspecified Qualified Code(s): R07.9 - Chest pain, unspecified
[2023-04-15] MEDS: HEPARIN SODIUM/DEXTROSE 25,000 UNITS/500 ML BAG IV SCH (14:36)
[2023-04-15] MEDS: HEPARIN SOD (PORCINE) 1000 UNIT/ML IV ONE (14:36)
[2023-04-15] MEDS: Heparin IV Adult Wt-Based Low-Dose w/ INITIAL Bolus Protocol IV SCH (14:43)
[2023-04-15 14:58] LABS: Partial Thromboplastin Ratio 0.8; Partial Thromboplastin Time 22 Seconds (21-31)
[2023-04-15] MEDS: Heparin IV Adult Wt-Based Low-Dose w/ INITIAL Bolus Protocol IV STA (15:05)
[2023-04-15] MEDS ORDERED: MoRPHine SULFATE 2 MG/ML CARP IV PRN (16:36)
--- OUTSIDE RECORDS SUMMARY | 2023-04-15 18:27 | External Medical Summary | Summary of Care ---
Author Name Unknown Organization [facility] Address [address] [place] [address] Phone [phone] Care Team Providers Care Poultry Trimmer Name Role Phone Maximo Vera MD Primary Care Provide r Reason for Visit * Reason Comments Medication Refill Encounter Details Date Type Department Care Team (Late st Contact Info) Description 04/03/2023 Refill Family Medicine [address] [phone] Aleyda Webster MD [address] [place] [address] [place] [address] Enlarged thoracic aorta (HCC); HTN, goal to be determined Allergies No known active allergiesdocumented as of this encounter (statuses as of 04/03/2023) Medications Medication Sig Dispensed Refills Start Date End Date Status VITAMIN C 1000 MG PO TABS every other day. 0 Active VITAMIN D 1000 UNIT PO CAPS Take by mouth every other day. 30 11 04/14/2009 Active MULTIPLE VITAMIN PO TABS 0 04/14/2009 Active [id number] ZOEY-WILLOW PO TABS Take by mouth every other day. 0 Active VITAMIN B-12 500 MCG PO TABS Take by mouth every other day. 0 07/31/2012 Active Finasteride 5 MG Oral Tablet (Proscar)Indicati ons:BPH with obstruction/lower urinary tract symptoms Take 1 Tablet by mouth in the morning. 30 Tablet 1 03/07/2023 Active Lisinopril 10 MG Oral Tablet (Prinivil)Indicat ions:Enlarged thoracic aorta (HCC),HTN, goal to be determined TAKE ONE TABLET BY MOUTH EVERY MORNING 100 Tablet 3 04/03/2023 Active Atorvastatin Calcium 20 MG Oral Tablet (Lipitor)Indicati ons:Enlarged thoracic aorta (HCC) TAKE ONE TABLET BY MOUTH IN THE EVENING 100 Tablet 3 04/03/2023 Active Lisinopril 10 MG Oral Tablet (Prinivil)Indicat ions:Enlarged thoracic aorta (HCC),HTN, goal to be determined TAKE ONE TABLET BY MOUTH EVERY MORNING 90 Tablet 1 08/30/2022 04/03/2023 Discontinued (Refill) Atorvastatin Calcium 20 MG Oral Tablet (Lipitor)Indicati ons:Enlarged thoracic aorta (HCC) TAKE ONE TABLET BY MOUTH IN THE EVENING 90 Tablet 1 08/30/2022 04/03/2023 Discontinued (Refill) documented as of this encounter (statuses as of 04/03/2023) Active Problems Problem Noted Date Diagnosed Date Postoperative follow-up 10/27/2021 History of pneumothorax 06/14/2021 S/P cervical spinal fusion 05/18/2021 Trigger middle finger of right hand 04/24/2020 Primary osteoarthritis of fi rst carpometacarpal joint of right hand 04/24/2020 Essential hypertension 04/22/2020 Actinic keratosis 12/12/2018 OAB (overactive bladder) 12/05/2018 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 Repeat yearly. Quit 10/07 after smoking 35 years 1 PPD. Pes cavus of right foot 08/25/2015 Lumbar spinal stenosis 03/31/2015 Lumbar radiculopathy 03/31/2015 Lumbar degenerative disc disease 01/20/2014 Primary localized osteoarthrosis of shoulder reg ion 04/13/2011 Cervical spinal stenosis 12/29/2008 Overview: multiple levels documented as of this encounter (statuses as of 04/03/2023) Resolved Problems Problem Noted Date Diagnosed Date Resolved Date Sacroiliitis 08/16/2019 09/02/2019 Seborrheic keratosis, inflamed 06/05/2018 11/21/2018 Enlarged thoracic aorta 12/01/201702/20 Overview: Mild on Echo 12/07 Lumbar disc herniation 03/31/201508/24 Tendinitis of shoulder 04/13/201104/18 ADVANCE DIRECTIVE INFORMATION 03/06/2006 08/19/2016 Overview: No, Advance Directive brochure offered , patient declined. MD-[id number] DIS NEC 02/03/2003 History of tobacco use 08/19 Benign neoplasm of colon 04/2018 Overview: Polyps removed feb 2017. Follow up 3 years. Tubular adenoma of colon documented as of this encounter (statuses as of 04/03/2023) Immunizations Name Administration Dates Next Due COVID-19 mRNA, LNP-s, No Pre serve, 2-Dose Series (Moderna) 05/06/2020,04/08/2020 COVID-19, MRNA-LNP, 23-24, P F, 50 MCG/0.5 mL, 12 YRS AND ABOVE, IM (MODERNA-Spikevax) 11/29/2022 COVID-19, mRNA, LNP-s, PF, B ooster, 100mcg/0.5mg (Moderna) 06/28/2021,12/25/2020 Covid-19, Mrna, Lnp-s, Pf, B ivalent, 50 Mcg, IM, 12 yrs and above (Moderna) 11/15/2021 Pneumococcal Conjugate Vacc, 13 Valent (Prevnar) 12/15/2015 Pneumococcal Conjugate Vacci ne, 20-valent (Agdezgu89) 09/07/2022 Pneumococcal Polysaccharide PPV23 (Pneumovax) 12/01/2016 RSV Vac., Recomb, Adjuvant, PF,0.5 Ml (Arexvy) 12/08/2022 Season Influenza, Quad, PF, Adjuvanted, 65+ Yrs, IM (FLUAD) 11/12/2019 Seasonal Influenza, PF, 6 M & above, IM , (FluLaval or Fluzone) 10/31/2017,12/01/2016 Seasonal Influenza, Quadriva lent Hd (Fluzone Hd) 11/04/2022,11/17/2021,11/06/2020 Seasonal Influenza, Quadriva lent, No Preserve, IM 12/15/2015,11/17/2014 Seasonal Influenza, Split, I IV3, With Preserve, Inj 01/20/2014,11/27/2012,01/06/2012,01/20,02/20/2010,12/21/2008,01/23/2006 Seasonal Influenza, Trivalen t, Adjuvanted, 65+ yrs 12/05/2018 TDAP (age 10 and older)(Boostrix) 08/19/2016, TDAP (age 11 and older)(Adacel) 01/11/2006 Varicella Zoster Vaccine (Adult) 09/14/2015,10/22,01/20/2014 Zoster Vaccine Recombinant (Shingrix) 02/25/2019 ,12/05/2018 documented as of this encounter Social History Tobacco Use Types Packs/Day Years Used Date Smoking Tobacco: Former Cigarettes 1 30 Q uit: 10/17/2017 Smokeless Tobacco: Never Comments:retsrted 2008 Alcohol Use Standard Drinks/Week Comments Yes 14 (1 standard drink = 0.6 oz pu re alcohol) pt states 1-2 a night PHQ-2 Answer Date Recorded PHQ Adult Total Score 0 09/28/2022 Hunger Vital Sign Answer Date Recorded Within the past 12 months, y ou worried that your food would run out before you got the money to buy more. Never true 09/29/19 23 Within the past 12 months, t he food you bought just didn't last and you didn't have money to get more. Never true 09/28/2022 Sex and Gender Information Value Date Recorded Sex Assigned at Male 05/29/2020 10:17 AM EDT Gender Identity Male 05/29/2020 10:17 AM EDT Sexual Orientation Straight 05/29/2020 10 :17 AM EDT Job Start Date Occupation Industry Not on file Not on file Not on file documented as of this encounter Functional Status Functional Status Response Date of Assess ment Are you deaf or do you have serious difficulty h earing? No 05/18/2021 Are you blind or do you have serious difficulty seeing, even when wearing glasses? No 05/18/2021 Do you have serious difficul ty walking or climbing stairs? (5 years old or older) No 05/18/2021 Do you have difficulty dress ing or bathing? (5 years old or older) No 05/18/2021 Because of a physical, menta l, or emotional condition, do you have difficulty doing errands alone such as visiting a doctor s office or shopping? (15 years old or older) No 05/19/19 Cognitive Status Response Date of Assessm ent Because of a physical, menta l, or emotional condition, do you have serious difficulty concentrating, remembering, or making decisions? (5 years old or older) No 05/18/2021 documented as of this encounter Miscellaneous Notes * Telephone Encounter - Dena Peters [facility] - 04/03/2023 5:38 PM ESTSigned Prescriptions: Disp Refills Lisinopril 10 MG Oral Tablet (Prinivil) 100 Ta*3 Sig: TAKE ONE TABLET BY MOUTH EVERY MORNING Authorizing Provider: MAXIMO VERA Ordering User: DENA PETERS Atorvastatin Calcium 20 MG Oral Tablet (Li*100 Ta*3 Sig: TAKE ONE TABLET BY MOUTH IN THE EVENING Authorizing Provider: MAXIMO VERA Ordering User: DENA ZAMORA * Telephone Encounter - 04/03/2023 12:13 AM ESTPending Prescriptions: Disp Refills Lisinopril 10 MG Oral Tablet (Prinivil) 90 Tab*1 Sig: TAKE ONE TABLET BY MOUTH EVERY MORNING Atorvastatin Calcium 20 MG Oral Tablet (Li*90 Tab*1 Sig: TAKE ONE TABLET BY MOUTH IN THE EVENING documented in this encounter Plan of Treatment Upcoming Encounters Date Type Department Care Team (Late st Contact Info) Description 04/12/2023 11:00 AM EST Office Visit Dermatology [address] [place] [id number] Rosalina Calhoun PA-C [address] [place] [address] [place] [id number] 04/27/2023 1:25 PM EST NeuroDiagnostic Study Neurophysiology [facility] [address] [facility] [place] [address] Emilio Yung, DO [address] [facility] [place] [address] 06/02/2023 1:00 PM EDT Office Visit Orthopaedics Spine Surgery, [facility] [address] [facility] [place] [address] Antony Pablo MD [address] [place] [address] [place] [address] 06/06/2023 10:00 AM EDT Office Visit Family Medicine [address] [place] [phone] Maximo Vera MD [address] [place] [address] [place] [phone] 06/07/2023 3:30 PM EDT Telemedicine Orthopaedics [facility] [address] [place] [address] Hebert Richey PA-C [address] [place] [address] 07/14/2023 10:30 AM EDT Office Visit Orthopaedics Spine Surgery, [facility] [address] [place] [address] Antony Pablo MD [address] [place] [id number] 10/02/2023 11:00 AM EDT Nurse Only Ancillary [address] [place] [address] [place], Nurse [address] [place] [id number] 01/09/2024 2:30 PM EST Cardiac Studies Cardiac Studies [address] [place] [id number] Scheduled Procedures Name Priority Associated Diagnoses Date/Ti me COLONOSCOPY FLEXIBLE PROXIMAL DIAGNOSTIC Recall Hx of colonic polyps Health Maintenance Due Date Last Done Comments Depression Screening 09/29/2023 09/28/2022 COLONOSCOPY-EVERY 5 YRS AGES 18-100 02/23/2024 02/22/2019, 02/22/2019, 03/20/2017, Additional history exists GFR 03/07/2024 03/07/2023, 0804/2021, 05/25/2021, Additional history exists Albumin/Creatinine Ratio 11/17/2024 11/17/2021 DTaP,Tdap,and Td Vaccines (4 - Td or Tdap) 08/19/2026 08/19/2016, 09/14/2015, 01/11/2006 Lipid Panel 03/07/2028 03/07/2023, 10/22, 09/10/2020, Additional history exists AAA Screening Completed 07/28/2015 Zoster Vaccines Completed 02/25/2019, 11/20, 09/14/2015, Additional history exists LUNG CANCER SCREENING - USE SMARTSET 18982 Completed 03/26/2020, 09/10/2019, 07/09/2018, Additional history exists Pneumococcal Vaccine: 65+ Years Completed 09/07/2022, 12/01/2016, 12/15/2015 Influenza Vaccine (FLU shot) Completed , 11/17/2021, 11/06/2020, Additional history exists COVID-19 Vaccine Completed 11/29/2022, , 06/28/2021, Additional history exists GARDASIL-HPV IMMUNIZATION SERIES Aged Out No longer eligible based on patient's age to complete this topic Hepatitis B Aged Out No longer eligi ble based on patient's age to complete this topic MENINGOCOCCAL (MENACTRA/MENVEO) Aged Out No longer eligible based on patient's age to complete this topic documented as of this encounter Medical Devices Implanted Type Area Immigration Patrol Inspector Device Identifier Shelf Expiration Date Model / Serial / Lot Vitoss Bimodal Foam Pack 10cc - [id number] - [id number] Implanted:Qty: 1 on 05/18/2021 by Antony Pablo MD at [facility] Graft N/A: Spine Cervical JOEL : SPINE 05/17/[id number] / [id number] / [id number] [facility] [id number] - [id number] - [id number] Implanted:Qty: 1 on 05/18/2021 by Antony Pablo MD at OR [facility] Tissue - Human N/A: Spine Cervical MUSCULOSKELETAL TRANSPLANT FND [id number] 10/29/2022 [id number] / [id number] / LOT NA Screw Slf Drill 15mm - [id number] Implanted:Qty: 2 on 02/25/2011 at OR [facility] N/A: Spine Cervical JNJ : DEPU[employer] SPINE [id number] / / Biocomposite Corkscrew Ft Vented Implanted:Qty: 1 on 10/05/2016 by Steven Go MD at OR [facility] Left: Shoulder 12/20/2017 [id number] / / [id number] [place] Sut 3.5x14.8 - [id number] Implanted:Qty: 1 on 11/15/2017 by Sonja Foster DO at OR [facility] Right: Shoulder [employer] 11/19/2018 [id number] / / [id number] X 75 Mm Raphael Implanted:Qty: 1 on 05/18/2021 by Antony Pablo MD at OR [facility] N/A: Spine Cervical [employer] [id number] / N/A / N/A Description:no expiration da te documented as of this encounter Visit Diagnoses Diagnosis Enlarged thoracic aorta (HCC) Thoracic aortic ectasia HTN, goal to be determined Unspecified essential hypertension documented in this encounter Advance Directives Latest Code Status on File Code Status Date Activated Date Inactivated Comments Full Code 05/18/2021 2:39 PM 05/20/2021 5:24 PM This order reflects the patients wishes and were consensually agreed upon. Code Status History Code Status Date Activated Date Inactivated Comments Full Code 05/18/2021 6:04 AM 05/18/2021 2:38 PM This order reflects the patients wishes and were consensually agreed upon. Full Code 11/15/2017 2:25 PM 11/15/2017 7:40 PM This order reflects the patients wishes and were consensually agreed upon. Full Code 10/05/2016 1:28 PM 10/05/2016 7:24 PM This order reflects the patients wishes and were consensually agreed upon. Full Code 02/25/2011 5:34 PM 02/26/2011 4:17 PM This or axel reflects the patients wishes and were consensually agreed upon. Question Answer Comments Discussion of Advance Directives occurred with: Not Discussed Care Teams Poultry Trimmer Relationship Specialty Start Date End Date Maximo Vera MD [address] [place] [address] [place] [id number] PCP - General Family Medicine 03/07/23 documented as of this encounter
--- OUTSIDE RECORDS SUMMARY | 2023-04-15 18:27 | External Medical Summary | Summary of Care ---
Author Name Unknown Organization [facility] Address [address] [place] [address] Phone [phone] Care Team Providers Care Labor Economics Teacher Name Role Phone Eric Lindquist MD Primary Care Provide r Reason for Visit * Reason Comments Follow Up 1 year for full skin exam, no concerns Encounter Details Date Type Department Care Team (Late st Contact Info) Description 04/12/2023 11:00 AM EST Office Visit Dermatology [address] [place] [phone] Rosalina aClhoun PA-C [address] [place] [address] [place] [phone] Actinic keratosis [L57.0]*; Skin exam, screening for cancer; Multiple nevi; Seborrheic keratosis; Lentigines Allergies No known active allergiesdocumented as of this encounter (statuses as of 04/12/2023) Medications Medication Sig Dispensed Refills Start Date End Date Status VITAMIN C 1000 MG PO TABS every other day. 0 Active VITAMIN D 1000 UNIT PO CAPS Take by mouth every other day. 30 11 04/14/2009 Active MULTIPLE VITAMIN PO TABS 0 04/14/2009 Active DLPAVU-[id number]-MN-GING ER-WILLOW PO TABS Take by mouth every other day. 0 Active VITAMIN B-12 500 MCG PO TABS Take by mouth every other day. 0 07/31/2012 Active Finasteride 5 MG Oral Tablet (Proscar)Indications :BPH with obstruction/lower urinary tract symptoms Take 1 Tablet by mouth in the morning. 30 Tablet 1 03/07/2023 Active Lisinopril 10 MG Oral Tablet (Prinivil)Indication s:Enlarged thoracic aorta (HCC),HTN, goal to be determined TAKE ONE TABLET BY MOUTH EVERY MORNING 100 Tablet 3 04/03/2023 Active Atorvastatin Calcium 20 MG Oral Tablet (Lipitor)Indications :Enlarged thoracic aorta (HCC) TAKE ONE TABLET BY MOUTH IN THE EVENING 100 Tablet 3 04/03/2023 Active documented as of this encounter (statuses as of 04/12/2023) Active Problems Problem Noted Date Diagnosed Date [...] as of this encounter (statuses as of 04/12/2023) Resolved Problems Problem Noted Date Diagnosed Date Resolved Date Sacroiliitis 08/16/2019 09/02/2019 Seborrheic keratosis, inflamed 06/05/2018 11/21/2018 Enlarged thoracic aorta 12/01/201702/20 Overview: Mild on Echo 12/07 Lumbar disc herniation 03/31/201508/24 Tendinitis of shoulder 04/13/201104/18 ADVANCE DIRECTIVE INFORMATION 03/06/2006 08/19/2016 Overview: No, Advance Directive brochure offered , patient declined. FM [id number] DIS NEC 02/03/2003 History of tobacco use 08/19 Benign neoplasm of colon 04/2018 Overview: Polyps removed feb 2017. Follow up 3 years. Tubular adenoma of colon documented as of this encounter (statuses as of 04/12/2023) Immunizations Name Administration Dates Next Due COVID-19 [...] (Prevnar) 12/15/2015 Pneumococcal Conjugate Vacci ne, 20-valent ([id number]) 09/07/2022 Pneumococcal Polysaccharide PPV23 (Pneumovax) 12/01/2016 RSV [...] Date Smoking Tobacco: Former Cigarettes 1 30 0 10/18/1987 - 10/17/2017 Smokeless Tobacco: Never Comments:retsrted 2008 Alcohol [...] No 05/18/2021 documented as of this encounter Patient Instructions * Patient Instructions* Rosalina Calhoun PA-C - 04/12/2023 10:47 AM EST SUNSCREEN USE AND SUN PROTECTION: 1. The best protection is sun avoidance. Seek shade if you can, especially between 10am to 4pm (peak sun hours). 2. Use sunscreen with an SPF (Sun Protection Factor - the number on most sunscreen bottles) of 30 or more that protects from Ultraviolet A (UVA) and Ultraviolet B (UVB) wavelength light (strongly recommend SPF 50). This is referred to as broad spectrum sun protection because it protects from most wa velengths in both spectrums of UVA and UVB light. Unfortunately, even though the protection is broad it is not complete, therefore making sun avoidance the best protection. UVB and UVA have both beenimplicated in causing skin cancers. Older sunscreens only protected from UVB and sunscreens with added UVA protection should contain Titanium dioxide, Zinc oxide, or Avobenzone. Other oil free, non-comedogenic lotion with SPF 30 or greater is fine. 3. Use sun protection if outside for 15 minutes or more. Apply 20-30 minutes before going out and reapply every 1-2 hours. No sunscreen is truly water ''proof'' and it will wash away with sweat, swimming and rubbing. 4. Wear tightly woven, loose fitting (cooler) long sleeved clothing, UV-blocking sun glasses (eyes need protection as well) and wide-brimmed hatwear (no straw hats with holes because light still getsthrough). Strongly recommended *Neutrogena Pure and Free Baby SPF 60 (have separate face and body lotions) orCeraVe AM facial lotion (with SPF 30). If looking for non toxic alternatives-look for non-mariam particle zinc. Product examples; Think sport, Think baby, Vidya, Oktalogic, Zighra, [place] baby. "Baby" products can be used for all ages. Skin Cryosurgery (FREEZING) Instructions Most areas treated by freezing will need very little care. You may wash normally with soap and water and leave any small crusts in place. Vaseline to treated areas 2-3 times per day is a good idea, you do not need to keep them covered with bandages. If a large blister forms and breaks, you will want to apply a light dressing to the area. CHANGE DRESSING ONCE DAILY 1. Wash hands and remove the original dressing(s) in 12-24 hours. 2. Gently clean wound(s) with soap and water. Rinse with water and pat the wound dry. 3. Apply a thin layer of Vaseline ointment with a Q-tip. 4. Cover with a bandage if area(s) is not on the face or scalp. A dressing is not required on the face or scalp. Use non-adherent dressing and paper tape if you are sensitive to band-aid adhesive sensitive. 5. If you have any concerns about the healing wound, please either or our main Dermatology office in [place] at [phone]. If an emergency, please go to your nearest Emergency Department. documented in this encounter Progress Notes * Rosalina Calhoun PA-C - 04/12/2023 10:46 AM EST SUBJECTIVE: History of Present Illness: Finn Penn is a 72 year old male seen today for follow up of full skin exam. Previous office visit: 04/06/2022 Last attempted treatments include: NONE No new or changing lesions, per pt. Fashion Intern Documentation Patient offered home theater installer and declined. REVIEW OF SYSTEMS: SKIN: No other new or changing moles. HEME/LYMPH: No new or enlarging lumps or bumps. CONSTITUTIONAL: No nausea, vomiting, fevers, chills, diarrhea. No recent unintended weight loss, night sweats, appetite or malaise. RESP: negative MSK/EXT: Negative or as per HPI GI: negative CV: Negative or as per HPI Rest of systems are negative or as per HPI SKIN CANCER HX: NONE, actinic keratoses Reviewed, same day as visit, 0 [facility] Dermatology lab work(s)/pathology report(s) as well as those sent by referring provider prior to seeing pt. MEDICA TIONS: Current Outpatient Medications Medication Sig Dispense Refill VITAMIN C 1000 MG PO TABS every other day. VITAMIN D 1000 UNIT PO CAPS Take by mouth every other day. 30 11 MULTIPLE VITAMIN PO TABS 0 [id number]-JBULGA PO TABS Take by mouth every other day. VITAMIN B-12 500 MCG PO TABS Take by mouth every other day. 0 Finasteride 5 MG Oral Tablet (Proscar) Take 1 Tablet by mouth in the morning. 30 Tablet 1 Lisinopril 10 MG Oral Tablet (Prinivil) TAKE ONE TABLET BY MOUTH EVERY MORNING 100 Tablet 3 Atorvastatin Calcium 20 MG Oral Tablet (Lipitor) TAKE ONE TABLET BY MOUTH IN THE EVENING 100 Tablet3 No current facility-administered medications for this visit. ALLERG IES: Patient has noknown allergies. OBJECT DEVAN: GEN: alert, no distress, appears oriented, pleasant and cooperative. SKIN: Detailed exam of hair, face including lids and lips, neck, chest, abdomen, back, bilateral upper ext. (arm, hand, fingers), bilateral lower ext. (leg, foot, toes), palpation of scalp, fingernails, toenails, inguinal areas, groin (penis, scrotum and perineum), buttocks and anus completed: L forehead-2 pink scaly papules. 2. Face/trunk/bilat arms and legs- About 75 total; 2mm-1cm skin colored/pink, light brown and light-medium brown macules and soft papules. 3. Face/trunk/bilat arms/legs-Some sharply defined, variegated brown, waxy flat papules with velvety to finely verrucous surfaces. 4. Face/trunk/bilat arms and legs-Some well defined light to medium brown homogenous stellate macules. ASSESS MENT/PLAN: 1. Actinic keratoses (x2) on L forehead-Cryosurgery explained to the patient. Discussed risk of blistering, crusting, infection, scarring, reoccurrence of lesions, hypopigmentation, post inflammatoryhyperpigmentation with pt prior to procedure. Verbal consent obtained. Time out called immediately prior to procedure and patient identification and site verified. Cryo therapy performed with Liquid Nitrogen via cryo spray unit to lesion (s) noted above. Location noted in physical exam. Post op course explained. 2. Nevi on face/trunk/bilat arms and legs-no tx needed, pt given reassurance and written education about diagnosis. Skin cancer brochure given and ABCDE's discussed with patient. Annual full body skin examination (unless I recommended otherwise), self-examination, and sun protection (SPF 30+ daily to sun exposed areas, with reapplication every 1-2 hours when out in sun for long periods of time) advised and discussed. Recommended sooner follow up for new or changing lesions. These changes include rapid enlargement, changes in color or shape or symptoms, bleeding, or other concerns. The common features and behavior of non-melanoma skin cancers (e.g. BCC/SCC) as well as the ABCDEs and ugly duckling features of melanoma were also reviewed. 3. Seborrheic/Benign Keratosis(-es) on face/trunk/bilat arms and legs-no tx needed, pt given reassurance and written education about diagnosis. 4. Lentigines on face/trunk/bilat arms and legs-no tx needed, pt given reassurance. Patient alone today. Photo(s) of #1-4 taken, pt verbally consented to having photo(s) taken. Follow-up: 1.5 years for full skin exam Applicable photos (if any) and chart reviewed by Dr. Silvino De La Rosa. Presumed diagnoses, expected natural histories, and management options discussed with the patient at length. Questions were addressed and anticipatory guidance provided. They were instructed to contact me if additional questions, concerns, or problems develop in the interim. -There were no barriers to learning and no other pain was related to today's visit. The patient and/or person accompanying patient demonstrates understanding of the visit and treatment. Rosalina Calhoun PA-C 04/12/2023 10:46 AM Dermatology [address] [place] [id number] documented in this encounter Nursing Notes * Elizabeth Wetzel LPN - 04/12/2023 10:48 AM EST Patient identified by full name and date of . Chief Complaint Patient presents with Follow Up 1 year for full skin exam, no concerns documented in this encounter Plan of Treatment Upcoming Encounters Date Type Department Care Team (Late st Contact Info) Description 04/27/2023 1:25 PM EST NeuroDiagnostic Study Neurophysiology [facility] [address] [place] [id number] Emilio Yung, DO [address] [facility] [place] [address] 06/02/2023 1:00 PM EDT Office Visit Orthopaedics Spine Surgery, [facility] [address] [place] [address] Antony Pablo MD [address] [place] [address] [place] [address] 06/06/2023 9:40 AM EDT Office Visit Family Medicine [address] [place] [phone] Eric Lindquist MD [address] [place] [address] [place] [phone] 06/07/2023 3:30 PM EDT Telemedicine Orthopaedics [facility] [address] [place] [phone] Hebert Richey PA-C [address] [place] [address] 07/14/2023 10:30 AM EDT Office Visit Orthopaedics Spine Surgery, [facility] [address] [place] [address] Antony Pablo MD [address] [place] [address] [place] [phone] 10/02/2023 11:00 AM EDT Nurse Only Ancillary [address] [place] [phone] [place], Nurse [address] [place] [address] 01/09/2024 2:30 PM EST Cardiac Studies Cardiac Studies [address] [place] [phone] 10/16/2024 11:00 AM EDT Office Visit Dermatology [address] [place] [phone] Rosalina Calhoun PA-C [address] [place] [address] [place] [id number] Scheduled Procedures Name Priority Associated Diagnoses Date/Ti me COLONOSCOPY FLEXIBLE PROXIMAL DIAGNOSTIC Recall Hx of colonic polyps Health Maintenance Due Date Last Done Comments Depression Screening 09/29/2023 09/28/2022 COLONOSCOPY-EVERY 5 YRS AGES 18-100 02/23/2024 02/22/2019, 02/22/2019, 03/20/2017, Additional history exists GFR 04/03/2024 04/03/2023, 02/20, 09/22/2021, Additional history exists Albumin/Creatinine Ratio 11/17/2024 11/17/2021 DTaP,Tdap,and Td Vaccines (4 - Td or Tdap) 08/19/2026 08/19/2016, 09/14/2015, 01/11/2006 Lipid Panel 03/07/2028 03/07/2023, 10/22, 09/10/2020, Additional history exists AAA Screening Completed 07/28/2015 Zoster Vaccines Completed 02/25/2019, 11/20, 09/14/2015, Additional history exists LUNG CANCER SCREENING - USE SMARTSET 95039 Completed 03/26/2020, 09/10/2019, 07/09/2018, Additional history exists [...] this encounter Medical Devices Implanted Type Area Stick Roller Device Identifier Shelf Expiration Date Model / Serial / Lot Vitoss Bimodal Foam Pack 10cc - [id number] - [id number] Implanted:Qty: 1 on 05/18/2021 by Antony Pablo MD at OR [facility] Graft N/A: Spine Cervical JOEL : SPINE 05/17/[id number] / [id number] / [id number] Dbx 5c [id number] - [id number] - [id number] Implanted:Qty: 1 on 05/18/2021 by Antony Pablo MD at OR [facility] Tissue - Human N/A: Spine Cervical MUSCULOSKELETAL TRANSPLANT FND [id number] 10/29/2022 [id number] / [id number] / LOT NA Paste Dbm Burley 1.0cc - [id number] Implanted:Qty: 1 on 02/25/2011 at OR [facility] N/A: Spine Cervical [employer] 01/19/2013 [id number] / / [id number] Graft Bone Cornerstone [id number] - [id number] Implanted:Qty: 1 on 02/25/2011 at OR [facility] N/A: Spine Cervical Medtrol 07/09/2013 [id number] / [id number] / Uniplate One Level Plate 16mm - [id number] Implanted:Qty: 1 on 02/25/2011 at OR [facility] N/A: Spine Cervical JNJ : DEPUY SPINE [id number] / / Screw Slf Drill 15mm - [id number] Implanted:Qty: 2 on 02/25/2011 at OR [facility] N/A: Spine Cervical JNJ : DEPUY SPINE [id number] / / Biocomposite Corkscrew Ft Vented Implanted:Qty: 1 on 10/05/2016 by Steven Go MD at OR [facility] Left: Shoulder 12/20/2017 AR-1927BCT / / [id number] Corkscrew Double Loaded Suture [place] Implanted:Qty: 1 on 11/15/2017 by Sonja Foster DO at OR [facility] Right: Shoulder [employer] 02/19/2019 AR-1927BCT- 475 / / [id number] [place] Sut 3.5x14.8 - [id number] Implanted:Qty: 1 on 11/15/2017 by Sonja Foster DO at OR [facility] Right: Shoulder [employer] 11/19/2018 AR-2325BCC / / [id number] 3.5 X 14 Screw Implanted:Qty: 4 on 05/18/2021 by Antony Pablo MD at OR [facility] N/A: Spine Cervical [employer] 1020.35.114 / N/A / N/A Description:no expiration da te 3.5 X 14 Mm Reduction Screw Implanted:Qty: 4 on 05/18/2021 by Antony Pablo MD at OR [facility] N/A: Spine Cervical [employer] 1020.35.314 / N/A / N/A Description:expiration date 4 X 70 Mm [place] Implanted:Qty: 1 on 05/18/2021 by Antony Pablo MD at OR [facility] N/A: Spine Cervical [employer] 1020.64.070 / N/A / N/A Description:no expiration da te 4 X 75 Mm [place]hael Implanted:Qty: 1 on 05/18/2021 by Antony Pablo MD at OR [facility] N/A: Spine Cervical [employer] 1020.64.075 / N/A / N/A Description:no expiration da te Set Screw Implanted:Qty: 10 on 05/18/2021 by Antony Pablo MD at OR [facility] N/A: Spine Cervical [employer] 1020.00.000 / N/A / N/A Description:no expiration da te, screw has no size Reduction Screw Implanted:Qty: 2 on 05/18/2021 by Antony Pablo MD at OR [facility] N/A: Spine Cervical [employer] 1020.45.428 / N/A / N/A documented as of this encounter Visit Diagnoses Diagnosis Actinic keratosis [L57.0]- Primary Actinic keratosis Skin exam, screening for cancer Screening for malignant neoplasm of the skin Multiple nevi Benign neoplasm of skin, site unspecified Seborrheic keratosis Other seborrheic keratosis Lentigines Other dyschromia documented in this encounter Advance Directives Latest [...] Directives occurred with: Not Discussed Care Teams Labor Economics Teacher Relationship Specialty Start Date End Date Eric Lindquist MD [address] [place] [address] [place] [id number] PCP - General Family Medicine 03/07/23 documented as of this encounter
--- OUTSIDE RECORDS SUMMARY | 2023-04-15 18:27 | External Medical Summary | Summary of Care ---
Author Name Unknown Organization [facility] Address [address] [place] [address] Phone [phone] Care Team Providers Care Gypsum Block Setter Name Role Phone Eric Lindquist MD Primary Care Provide r Reason for Visit * Reason Comments Follow Up 1 year for full skin exam, no concerns Encounter Details Date Type Department Care Team (Late st Contact Info) Description 04/12/2023 11:00 AM EST Office Visit Dermatology [address] [place] [address] Rosalina Calhoun PA-C [address] [place] [address] [place] [id number] Actinic keratosis [L57.0]*; Skin exam, screening for cancer; Multiple nevi; Seborrheic keratosis; Lentigines Allergies Active Allergy Reactions Criticality Noted Date Comments Vibegron Flushing 04/12/2023 documented as of this encounter (statuses as of 04/14/2023) Medications Medication Sig Dispensed Refills Start Date End Date Status VITAMIN C 1000 MG PO TABS every other day. 0 Active VITAMIN D 1000 UNIT PO CAPS Take by mouth every other day. 30 11 04/14/2009 Active MULTIPLE VITAMIN PO TABS 0 04/14/2009 Active LBVKYH-HBO-J-MN-GING ER-WILLOW PO TABS Take by mouth every [...] as of this encounter (statuses as of 04/14/2023) Active Problems Problem Noted Date Diagnosed Date [...] as of this encounter (statuses as of 04/14/2023) Resolved Problems Problem Noted Date Diagnosed Date Resolved Date Sacroiliitis 08/16/2019 09/02/2019 Seborrheic keratosis, inflamed 06/05/2018 11/21/2018 Enlarged thoracic aorta 12/01/201702/20 Overview: Mild on Echo 12/07 Lumbar disc herniation 03/31/201508/24 Tendinitis of shoulder 04/13/201104/18 ADVANCE DIRECTIVE INFORMATION 03/06/2006 08/19/2016 Overview: No, Advance Directive brochure offered , patient declined. FM [id number] DIS NEC 02/03/2003 History of tobacco use 08/19 Benign neoplasm of colon 04/2018 Overview: Polyps removed feb 2017. Follow up 3 years. Tubular adenoma of colon documented as of this encounter (statuses as of 04/14/2023) Immunizations Name Administration Dates Next Due COVID-19 [...] (Prevnar) 12/15/2015 Pneumococcal Conjugate Vacci ne, 20-valent (Sdpemng14) 09/07/2022 Pneumococcal Polysaccharide PPV23 (Pneumovax) 12/01/2016 RSV Vac., Recomb, Adjuvant, PF,0.5 Ml (Arexvy) 12/08/2022 Season Influenza, Quad, PF, Adjuvanted, 65+ Yrs, IM (FLUAD) 11/12/2019 Seasonal Influenza, PF, 6 M & above, IM , (FluLaval or Fluzone) 10/31/2017,12/01/2016 Seasonal Influenza, Quadriva lent Hd (Fluzone Hd) 11/04/2022,11/17/2021,11/06/2020 Seasonal Influenza, Quadriva lent, No Preserve, IM 12/15/2015,11/17/2014 Seasonal Influenza, Split, I IV3, With Preserve, Inj 01/20/2014,11/27/2012,01/06/2012,01/20,02/20/2010,12/21/2008,01/23/2006 ,01/14/2002 Seasonal Influenza, Trivalen t, Adjuvanted, 65+ yrs [...] zinc. Product examples; Think sport, Think baby, [place], [employer], [employer], [place] baby. "Baby" products can be used [...] either or our main Dermatology office in [place] at [phone]. If an emergency, please go to your nearest Emergency Department. documented in this encounter Progress Notes * Silvino De La Rosa MD - 04/14/2023 12:33 PM EST I have seen and examined the patient via teledermatology review of chart note and photos with Rosalina Calhoun PA-C. I have reviewed and agree with the assessment and plan. * Rosalina Calhoun PA-C - 04/12/2023 10:46 AM EST SUBJECTIVE: History of Present Illness: Finn Penn is a 72 year old male seen today for follow up of full skin exam. Previous office visit: 04/06/2022 Last attempted treatments include: NONE No new or changing lesions, per pt. Commercial Print Salesman Documentation Patient offered biological photographer and declined. REVIEW OF SYSTEMS: SKIN: No [...] keratoses Reviewed, same day as visit, 0 [facility] Dermatology lab work(s)/pathology report(s) as well as those sent by referring provider prior to seeing pt. MEDICA TIONS: Current Outpatient Medications Medication Sig Dispense Refill VITAMIN C 1000 MG PO TABS every other day. VITAMIN D 1000 UNIT PO CAPS Take by mouth every other day. 30 11 MULTIPLE VITAMIN PO TABS 0 UCRTWT-RUX-M-SV-KDJKCQ-FJUBKN PO TABS Take by mouth every other [...] Rosalina Calhoun PA-C 04/12/2023 10:46 AM Dermatology [address] [place] [address] documented in this encounter Nursing Notes * [...] 04/27/2023 1:25 PM EST NeuroDiagnostic Study Neurophysiology [facility] [place] [address] [place] [address] Emilio Yung, [address] [facility] [place] [address] 06/02/2023 1:00 PM EDT Office Visit [facility] [address] [place] [address] Antony Pablo MD [address] [place] [address] 06/06/2023 9:40 AM EDT Office Visit Family Medicine [address] [place] [phone] Eric Lindquist MD [address] [place] [address] [place] [address] 06/07/2023 3:30 PM EDT Telemedicine Orthopaedics [facility] [address] [place] [address] Hebert Richey PA-C [address] [place] [address] 07/14/2023 10:30 AM EDT [facility] [address] [facility] [place] [address] Antony Pablo MD [address] [place] [address] 10/02/2023 11:00 AM EDT Nurse Only Ancillary [address] [place] [address] [place], Nurse [address] [place] [address] 01/09/2024 2:30 PM EST Cardiac Studies Cardiac Studies [address] [place] [address] 10/16/2024 11:00 AM EDT Office Visit Dermatology [address] [place] [address] Rosalina Calhoun PA-C [address] [place] [address] [place] [phone] Scheduled Procedures Name Priority Associated Diagnoses Date/Ti [...] exists LUNG CANCER SCREENING - USE SMARTSET 61566 Completed 03/26/2020, 09/10/2019, 07/09/2018, Additional history exists [...] this encounter Medical Devices Implanted Type Area Art Teacher Device Identifier Shelf Expiration Date Model / Serial / Lot Vitoss Bimodal Foam Pack 10cc - [id number] - [id number] Implanted:Qty: 1 on 05/18/2021 by Antony Pablo MD at OR [facility] Graft N/A: Spine Cervical JOEL : SPINE 05/17/2022 [id number] / [id number] / [id number] Dbx [facility] [id number] - [id number] - [id number] Implanted:Qty: 1 on 05/18/2021 by Antony Pablo MD at OR [facility] Tissue - Human N/A: Spine Cervical MUSCULOSKELETAL TRANSPLANT FND [id number] 10/29/2022 [id number] / [id number] / LOT NA Paste Dbm Pablito 1.0cc - [id number] Implanted:Qty: 1 on 02/25/2011 [place] [facility] N/A: Spine Cervical [employer] 01/19/2013 51474 / / [id number] Graft Bone Cornerstone [id number] - [id number] Implanted:Qty: 1 on 02/25/2011 at [facility] N/A: Spine Cervical Medtrol 07/09/2013 [id number] / [id number] / Uniplate One Level Plate 16mm - [id number] Implanted:Qty: 1 on 02/25/2011 [place] [facility] [place] N/A: Spine Cervical JNJ : DEPUY SPINE [id number] / / Screw Slf Drill 15mm - [id number] Implanted:Qty: 2 on 02/25/2011 at [place] [facility] [place] N/A: Spine Cervical JNJ : DEPUY SPINE [id number] / / Biocomposite Corkscrew Ft Vented Implanted:Qty: 1 on 10/05/2016 by Steven Go MD at OR [facility] Left: Shoulder 12/20/2017 AR-1927BCT / / [id number] 4.08b16dw Corkscrew Double Loaded Suture Nelson Implanted:Qty: 1 on 11/15/2017 by Sonja Foster DO at OR [facility] Right: Shoulder [employer] 02/19/2019 AR-1927BCT- 475 / / [id number] Nelson Sut 3.5x14.8 - [id number] Implanted:Qty: 1 on 11/15/2017 by Sonja Foster DO at OR [facility] Right: Shoulder [employer] 11/19/2018 AR-2325BCC / / [id number] 3.5 X 14 Screw Implanted:Qty: 4 on 05/18/2021 by Antony Pablo MD at OR [facility] N/A: Spine Cervical DEPU[employer] INC 1020.35.114 / N/A / N/A Description:no expiration da te 3.5 X 14 Mm Reduction Screw Implanted:Qty: 4 on 05/18/2021 by Antony Pablo MD at OR [facility] N/A: Spine Cervical [employer]PU[employer] 1020.35.314 / N/A / N/A Description:expiration date 4 X 70 Mm Raphael Implanted:Qty: 1 on 05/18/2021 by Antony Pablo MD at OR [facility] N/A: Spine Cervical [employer] 1020.64.070 / N/A / N/A Description:no expiration da te 4 X 75 Mm Raphael Implanted:Qty: 1 on 05/18/2021 by Antony Pablo MD at OR [facility] N/A: Spine Cervical [employer] 1020.64.075 / N/A / N/A Description:no expiration da te Set Screw Implanted:Qty: 10 on 05/18/2021 by Antony Pablo MD at OR [facility] N/A: Spine Cervical [employer]PU[employer] 1020.00.000 / N/A / N/A Description:no expiration da te, screw has no size Reduction Screw Implanted:Qty: 2 on 05/18/2021 by Antony Pablo MD at OR [facility] N/A: Spine Cervical [employer] 1020.45.428 / N/A / N/A documented as of this encounter Procedures Procedure Name Priority Date/Time Associated Diagnosis Comments DERM IMAGE (SITE) Routine 04/12/2023 Skin exam, screening for cancer Multiple nevi Seborrheic keratosis Lentigines Actinic keratosis [L57.0] documented in this encounter Results * DERM IMAGE (SITE) (04/12/2023) 04/12/2023 Rosalina Calhoun PA-C DIGITAL PHOTOG SEBASTIAN documented in this encounter Visit Diagnoses Diagnosis Actinic keratosis [...] Directives occurred with: Not Discussed Care Teams Gypsum Block Setter Relationship Specialty Start Date End Date Eirc Lindquist MD [address] [place] [address] [place] [address] PCP - General Family Medicine 03/07/23 documented as of this encounter
--- OUTSIDE RECORDS SUMMARY | 2023-04-15 18:28 | External Medical Summary | Summary of Care ---
Author Name Unknown Organization [facility] Address [address] [place] [address] Phone [phone] Care Team Providers Care Manager Wound Name Role Phone Eric Lindquist MD Primary Care Provide r Reason for Visit * Reason Comments Outpatient Testing Encounter Details Date Type Department Care Team (Late st Contact Info) Description 04/03/2023 12:10 PM EST Laboratory Laboratory [address] [place] [phone] [place] [address] Hematuria Allergies No known active allergiesdocumented as of this encounter (statuses as of 04/03/2023) Medications Medication Sig Dispensed Refills Start Date End Date Status VITAMIN C 1000 MG PO TABS every other day. 0 Active VITAMIN D 1000 UNIT PO CAPS Take by mouth every other day. 30 11 04/14/2009 Active MULTIPLE VITAMIN PO TABS 0 04/14/2009 Active QIFXEN-WAY-T-MN-GING ER-WILLOW PO TABS Take by mouth every other day. 0 Active VITAMIN B-12 500 MCG PO TABS Take by mouth every other day. 0 07/31/2012 Active Lisinopril 10 MG Oral Tablet (Prinivil)Indication s:Enlarged thoracic aorta (HCC),HTN, goal to be determined TAKE ONE TABLET BY MOUTH EVERY MORNING 90 Tablet 1 08/30/2022 08/30/2023 Active Atorvastatin Calcium 20 MG Oral Tablet (Lipitor)Indications :Enlarged thoracic aorta (HCC) TAKE ONE TABLET BY MOUTH IN THE EVENING 90 Tablet 1 08/30/2022 08/30/2023 Active Finasteride 5 MG Oral Tablet (Proscar)Indications :BPH with obstruction/lower urinary tract symptoms Take 1 Tablet by mouth in the morning. 30 Tablet 1 03/07/2023 Active documented as of this encounter (statuses [...] Directive brochure offered , patient declined. FM CO-NTTT-BENGZ DIS NEC 02/03/2003 History of tobacco use [...] (Prevnar) 12/15/2015 Pneumococcal Conjugate Vacci ne, 20-valent (Itwdlqg10) 09/07/2022 Pneumococcal Polysaccharide PPV23 (Pneumovax) 12/01/2016 RSV [...] No 05/18/2021 documented as of this encounter Plan of Treatment Upcoming Encounters Date Type Department Care Team (Late st Contact Info) Description 04/12/2023 11:00 AM EST Office Visit Dermatology [address] [place] [address] Rosalina Calhoun PA-C [address] [place] [address] [place] [address] 04/27/2023 1:25 PM EST NeuroDiagnostic Study Neurophysiology [facility] [address] [facility] [place] [address] Emilio Yung, DO [address] [place] [address] 06/02/2023 1:00 PM EDT Office Visit Orthopaedics Spine Surgery, [facility] 132 [facility] [place] [address] Antony Pablo MD [address] [place] [address] 06/06/2023 10:00 AM EDT Office Visit Family Medicine [address] [place] [phone] Eric Lindquist MD [address] [place] [address] [place] [address] 06/07/2023 3:30 PM EDT Telemedicine Orthopaedics [facility] [address] [place] [address] Hebert Richey PA-C [address] [place] [place] [address] 07/14/2023 10:30 AM EDT Office Visit Orthopaedics Spine Surgery, [facility] [address] [place] [address] Antony Pablo MD [address] [place] [address] 10/02/2023 11:00 AM EDT Nurse Only Ancillary [address] [place] [address] [place], Nurse [address] [place] [address] 01/09/2024 2:30 PM EST Cardiac Studies Cardiac Studies [address] [place] [address] Pending Results Name Type Priority Associated Diagnoses Date /Time BASIC METABOLIC PANEL Lab Routine Hematuria 04/03/2023 12:06 PM EST Scheduled Procedures Name Priority Associated Diagnoses Date/Ti me COLONOSCOPY FLEXIBLE PROXIMAL DIAGNOSTIC Recall Hx of colonic polyps Health Maintenance Due Date Last Done Comments Depression Screening 09/29/2023 09/28/2022 COLONOSCOPY-EVERY 5 YRS AGES 18-100 02/23/2024 02/22/2019, 02/22/2019, 03/20/2017, Additional history exists GFR 03/07/2024 03/07/2023, 08/0 04/2021, 05/25/2021, Additional history exists Albumin/Creatinine Ratio 11/17/2024 11/17/2021 DTaP,Tdap,and Td Vaccines (4 - Td or Tdap) 08/19/2026 08/19/2016, 09/14/2015, 01/11/2006 Lipid Panel 03/07/2028 03/07/2023, 10/22, 09/10/2020, Additional history exists AAA Screening Completed 07/28/2015 Zoster Vaccines Completed 02/25/2019, 11/20, 09/14/2015, Additional history exists LUNG CANCER SCREENING - USE SMARTSET 16048 Completed 03/26/2020, 09/10/2019, 07/09/2018, Additional history exists [...] this encounter Medical Devices Implanted Type Area Brim And Crown Presser Device Identifier Shelf Expiration Date Model / Serial / Lot Vitoss Bimodal Foam Pack 10cc - [id number] - [id number] Implanted:Qty: 1 on 05/18/2021 by Antony Pablo MD at OR [facility] Graft N/A: Spine Cervical JOEL : SPINE 05/17/2022 8121-4669 / [id number] / [id number] Dbx [facility] 143404 - [id number] - [id number] Implanted:Qty: 1 on 05/18/2021 by Antony Pablo MD at OR [facility] Tissue - Human N/A: Spine Cervical MUSCULOSKELETAL TRANSPLANT FND [id number] 0473 10/29/2022 [id number] / [id number] / LOT NA Screw Slf Drill 15mm - [id number] Implanted:Qty: 2 on 02/25/2011 at [place] [facility] [place] N/A: Spine Cervical JNJ : DEPUY SPINE [id number] / / Biocomposite Corkscrew Ft Vented Implanted:Qty: 1 on 10/05/2016 by Steven Go MD at OR [facility] Left: Shoulder 12/20/2017 AR-1927BCT / / [id number] [place] Sut 3.5x14.8 - [id number] Implanted:Qty: 1 on 11/15/2017 by Sonja Foster DO at OR [facility] Right: Shoulder [employer] 11/19/2018 AR-2325BCC / / [id number] X 75 Mm Raphael Implanted:Qty: 1 on 05/18/2021 by Antony Pablo MD at OR [facility] N/A: Spine Cervical DEPU[employer] INC 1020.64.075 / N/A / N/A Description:no expiration da te documented as of this encounter Visit Diagnoses Diagnosis Hematuria Hematuria, unspecified documented in this encounter Advance Directives Latest [...] Directives occurred with: Not Discussed Care Teams Manager Wound Relationship Specialty Start Date End Date Eric Lindquist MD [address] [place] [address] [place] [phone] PCP - General Family Medicine 03/07/23 documented as of this encounter
--- OUTSIDE RECORDS SUMMARY | 2023-04-15 18:28 | External Medical Summary ---
Author Name Unknown Address Unknown Organization K01:[facility] - [facility] [address] [place] [address] Laboratory Report Ordering Provider Test Date Status ZACHARY PICKERING 04/03/2023 12:06:18 Final Observation Date Value Abnormality Reference (Units ) Status BUN 04/03/2023 12:06:18 11 6-20 (mg/dL) Final Creatinine 04/03/2023 12:06:18 0.8 0.6-1.2 (mg/dL) Final Glomerular filtration rate/1.73 sq M.predicted [Volume Rate/Area] in Serum, Plasma or Blood by Creatinine-based formula (CKD-EPI) 04/03/2023 12:06:18 >90 >=60 (mL/min) Final eGFR is calculated based on the CKD-EPI 2020 equation SODIUM 04/03/2023 12:06:18 142 135-146 (m mol/L) Final Potassium 04/03/2023 12:06:18 4.2 3.5-5.1 (m mol/L) Final Cl 04/03/2023 12:06:18 103 98-107 (mm ol/L) Final CO2 04/03/2023 12:06:18 27 22-32 (mmo l/L) Final Anion gap 04/03/2023 12:06:18 12 7-15 (mmol /L) Final Glucose 04/03/2023 12:06:18 153 Above high normal 70 -120 (mg/dL) Final Calcium 04/03/2023 12:06:18 9.9 8.4-10.2 ( mg/dL) Final Performing Location [facility] - [address] [facility] [address]
[2023-04-15 21:44] LABS: ANTI-Xa, UFH(UnfractionatedHep 0.36 IU/ml (0.3-0.7)
[2023-04-15] MEDS ORDERED: Nursing to Pharmacy Communication SCH (21:45)
[2023-04-16 05:37] LABS: Hematocrit (blood only) 38.9 % (42.0-52.0); Hemoglobin 13.1 g/dl (14.0-18.0); Mean Corpuscular Hemoglobin 29.6 pg (25.0-34.0); Mean Corpuscular Hgb Conc 33.7 g/dL (32.0-36.0); Mean Corpuscular Volume 87.8 fL (80.0-100.0); Mean Platelet Volume 9.5 fL (9.4-12.4); Platelet Count 189 K/uL (130-400); RDW Standard Deviation 38.6 fL (36.4-46.3); Red Blood Count 4.43 M/uL (4.70-6.10)
[2023-04-16 05:56] LABS: BUN Creatinine Ratio 26.5 (10-20); Calcium 9.3 mg/dl (8.6-10.3); Est GFR (African American) 109.8 ml/min; Est GFR (Non-African American) 94.7 ml/min; Potassium 4.1 mmol/L (3.5-5.1)
[2023-04-16 07:25] LABS: Estimated Average Glucose 114 mg/dl; Hemoglobin A1C 5.6 % (4.5-5.6)
[2023-04-16] MEDS: ACETAMINOPHEN 325 MG TAB PO PRN (07:43)
[2023-04-16] MEDS: CHOLECALCIFEROL 25 MCG (1000 UNITS) TAB PO SCH (08:40)
[2023-04-16] MEDS: FINASTERIDE 5 MG TAB PO SCH (08:40)
[2023-04-16] MEDS: lisinopril 10 MG TAB PO SCH (08:40)
[2023-04-16] MEDS: ASCORBIC ACID 500 MG TAB PO SCH (08:40)
[2023-04-16] MEDS: CYANOCOBALAMIN (B-12) 500 MCG TABLET PO SCH (08:40)
[2023-04-16] MEDS: MULTIVITAMIN TAB PO SCH (08:41)
[2023-04-16] MEDS ORDERED: NON-FORMULARY MEDICATION (Glucos Sul 2kcl-Msm-Chond-C-Mn [Glucosamine Chondroitin] 550-30- PO SCH (09:00)
[2023-04-16] MEDS: ASPIRIN 81 MG ECTAB PO SCH (10:00)
[2023-04-16] MEDS ORDERED: ATORVASTATIN 20 MG TAB PO SCH (11:30)
--- NOTE | 2023-04-16 11:45 | Cardiology Consultation ---
Date of Consultation April 16, 2023 Assessment & Plan (1) Atypical chest pain: (2) Uncontrolled hypertension: (3) Coronary artery calcification: (4) Episode of change in speech: (5) Aortic root enlargement: Plan 72-year-old male with a history of borderline aortic root enlargement (4.1cm per CT) presents with atypical epigastric and subxiphoid discomfort lasting more than 12 hours without elevation of troponin, evolving ECG changes, or regional wall motion abnormality on echocardiogram. CTA of the chest without evidence of aortic catastrophe or pulmonary embolus, however, coronary calcifications noted (present on CT and [facility] record dated 03/26/2020). Recommend further ischemic evaluation with noninvasive stress testing. Offered pharmacologic stress testing due to musculoskeletal issues, however, prefers exercise stress testing. Schedule as outpatient. With evidence of coronary calcifications, recommend addition of low-dose aspirin 81 mg daily and titration atorvastatin to 40 mg daily. Recommend addition of amlodipine 5 mg daily to improve blood pressure control. In regard to patient's neurologic symptoms have ordered a CT of the head without contrast. Consider neurology consultation. Recommendations discussed with hospitalist for continuity of care. Thank you for allow me to participate in the care of your patient. I spent a total of 60 minutes on the date of service in preparation, delivery, and documentation of the care provided to this patient, excluding any time spent in the performance of separately billed services. History of Present Illness Reason for Consultation: Unstable angina Requesting Physician: Dr. Isiah Mcbride Attending Physician: Shannan Louie MD History of Present Illness 72-year-old patient presented to the emergency department with confusion, somnolence, possible motor weakness, epigastric discomfort, neck and left shoulder discomfort. Describes epigastric burning beginning yesterday in the morning. His primary complaint was regarding possible word finding issues, confusion, and clumsiness of his upper extremities. Stat echocardiogram was performed in the ER 04/15/2023 due to ongoing symptoms and nonspecific ECG changes. Echocardiogram demonstrating normal wall motion and preserved LV systolic function. Patient's symptoms persisted for more than 12 hours and spontaneously resolved. Telemetry revealing sinus rhythm in the 60s and 70s. No dysrhythmia. Currently feeling better from a cardiovascular perspective. Denies any recurrent epigastric burning. Notes bilateral shoulder discomfort which is positional. Notes extensive history of musculoskeletal issues and prior spinal surgery. Currently participating in physical therapy due to his shoulder pain. Prior to physical therapy he was walking up to 6 miles daily without exertional chest pain or unusual shortness of breath. No orthopnea, PND, or lower extremity edema. Denies palpitations, lightheadedness, dizziness, syncope, or near syncope. Blood pressure elevated since admission. High-sensitivity troponin within normal limits x 3 sets. Allergies Allergy/AdvReac Type Severity Reaction Status Date / Time vibegron AdvReac Intermediate Flushing Verified 04/15/23 14:45 Home Medications Medication Instructions Recorded Confirmed Type ascorbic acid (vitamin C) 500 mg 1,000 mg PO QAM 04/11/19 04/15/23 History tablet (Vitamin C) cholecalciferol (vitamin D3) 25 1,000 unit PO QAM 04/11/19 04/15/23 History mcg (1,000 unit) capsule (Vitamin D3) cyanocobalamin (vitamin B-12) 500 500 mcg PO QAM 04/11/19 04/15/23 History mcg tablet glucosamine sulf dipot 1 cap PO QAM 04/11/19 04/15/23 History chlr,msm,chond 550 mg-C 30 mg-jes 1 mg capsule (Glucosamine Chondroitin) multivitamin 1 tab PO QAM 04/11/19 04/15/23 History atorvastatin 20 mg tablet (Lipitor) 20 mg PO QPM 05/22/21 04/15/23 History lisinopril 10 mg tablet 10 mg PO QAM 05/22/21 04/15/23 History finasteride 5 mg tablet 5 mg PO QAM 04/03/23 04/15/23 History Patient History Medical History Cervical disc disorder with myelopathy Collapsed lung S/p most recent cervical fusion 05/18/2021 - right thoravent placed @ [facility] ER 05/24/21 for right sided pneumothorax (resolution of pneumothorax per 05/26/21 CXR) Hypertension Incomplete right bundle branch block (RBBB) Follows w/ Dr Elizondo last visit 04/2021 Enlarged aorta F/U DR ELIZONDO ANNUALLY- BORDERLINE ENLARGEMENT OF ASCENDING AORTA (3.8CM) AND AORTIC ROOT (3.9CM) PER 11/03/20 ECHO Spinal stenosis PAIN TO BILAT LEGS Hyperlipidemia Surgical History S/P cataract extraction b/l S/P chest tube placement 05/2021 [facility] S/P inguinal hernia repair S/P laminectomy Pilonidal cyst REMOVAL OF S/P wrist surgery GANGLION Hx of hand surgery R/L History of repair of rotator cuff R/L Fusion of spine CERVICAL-x 3 last one 04/2021 @ [facility] History of colonoscopy Family History Brother Prostate cancer Hypertension Social History Smoking Status: Former smoker Second Hand Exposure: No; Do You Dip or Chew Tobacco: No; Tobacco Cessation Education Requested by Patient: No Hx Alcohol Use: Yes Alcohol type: beer Hx Substance Use: No Preferred Language: Portuguese Communication Ability: Effective Clip Riveter Required: No Beliefs That Will Affect Care: None Current Living Situation: Spouse current occupational status: employed Other Information That Helps Us Care for You: No Feels Safe at Home: Yes Safety Concerns: Feels Safe At This Time Assistive Devices: Glasses and Hearing Aid - Bilateral Assistive Devices Comment: with Review of Systems Review of Systems: All systems reviewed & are unremarkable except as noted in Subjective Physical Exam Constitutional: well developed and well nourished; no acute distress Respiratory: normal respiratory effort; no respiratory distress, no labored breathing and no retractions Auscultation: no crackles, no rales, no rhonchi and no wheezes Cardiovascular: Rate/Rhythm: regular rate and regular rhythm Heart Sounds: normal S1 and normal S2; no murmur Vessels: no JVD and no carotid bruit Extremities: no edema Gastrointestinal (Abdomen): Inspection/Auscultation: abdomen normal to inspection and normal bowel sounds; abdomen not distended Percussion/Palpation: abdomen soft; abdomen nontender, no guarding and abdomen not rigid Neurologic: CN's II-XI intact bilaterally and moves all extremities; no focal motor deficits Psychiatric: A+Ox3, euthymic affect Results & Data Vital Signs (Past 12 Hours) Vital Signs Temp Pulse Pulse Resp BP Pulse Ox O2 Del Method 04/16/23 07:45 69 04/16/23 07:38 36.7 C 68 16 157/86 H 96 Room Air 04/16/23 03:59 36.7 C 102 H 18 152/87 H 94 Room Air 04/16/23 00:44 36.6 C 78 18 158/87 H 94 Room Air Laboratory Results Cardiac Enzymes 04/15/23 04/15/23 04/15/23 Range/Units 12:24 14:03 20:24 AST 18 (13-39) U/L Troponin I High Sens 3.7 2.7 3.5 (0-20) pg/ml Coagulation 04/15/23 Range/Units 14:22 APTT 22 (21-31) Seconds Lipids 04/16/23 Range/Units 04:55 Triglycerides 42 (0-150) mg/dl Cholesterol 168 (0-200) mg/dl HDL Cholesterol 86 mg/dl Cholesterol/HDL Ratio 2.0 (0-5) CBC 04/15/23 04/16/23 Range/Units 12:24 04:55 WBC 8.66 9.00 (4.8-10.8) K/ul RBC 4.50 L 4.43 L (4.70-6.10) M/uL Hgb 13.5 L 13.1 L (14.0-18.0) g/dl Hct 39.5 L 38.9 L (42.0-52.0) % Plt Count 177 189 (130-400) K/uL Neut # (Auto) 6.52 H (1.40-6.50) K/uL Lymph # (Auto) 1.47 (1.20-3.40) K/uL Winkler # (Auto) 0.58 (0.11-0.59) K/uL Eos # (Auto) 0.04 (0.00-0.50) K/uL Baso # (Auto) 0.04 (0.00-0.20) K/uL Comprehensive Metabolic Panel 04/15/23 04/16/23 Range/Units 12:24 04:55 Sodium 139 138 (136-145) mmol/L Potassium 3.8 4.1 (3.5-5.1) mmol/L Chloride 104 106 (98-107) mmol/L Carbon Dioxide 26 24 (21-32) mmol/L BUN 20 18 (6-23) mg/dl Creatinine 0.76 0.68 (0.6-1.4) mg/dl Glucose 185 H 115 H (70-99(Fasting)) mg/dl Calcium 9.2 9.3 (8.6-10.3) mg/dl AST 18 (13-39) U/L ALT 19 (7-52) U/L Alkaline Phosphatase 59 (34-104) U/L Total Protein 7.4 (6.0-8.3) gm/dl Albumin 4.5 (3.4-5.0) gm/dl Intake and Output 04/15/23 04/16/23 04/16/23 22:59 06:59 14:59 Intake Total 695.667 / 1195.667 Output Total 1024 Balance -329.333 / -804.333 -975 / -804.333 Intake: IV 145.667 / 645.667 Heparin Sodium/Dextrose 25,000 145.667 / 145.667 units In 500 ml @ 1,000 UNITS/ HR 20 mls/hr IV .Q24H YURY Rx#: [id number] Oral 550 / 550 Output: Urine 1024 Other: # Unmeasured Voids 2 Weight 93.5 kg 93.2 kg Weight Measurement Method Built in [facility] Built in [facility] ECG Additional Comments: Initial ECG on presentation demonstrating sinus rhythm with a right bundle branch block and nonspecific ST changes. There is poor R wave progression, cannot exclude age-indeterminate anterior infarct. 2 follow-up ECGs were performed with ongoing symptoms. No significant change or evidence of evolving ischemia.
[2023-04-16] MEDS: ATORVASTATIN 40 MG TAB PO SCH (12:23)
--- NOTE | 2023-04-16 12:38 | CT Scan Report ---
HEAD CT NONCONTRAST CT DOSE: 688.24 mGy.cm HISTORY: Transient confusion and motor weakness TECHNIQUE: Multiaxial CT images of the head were performed without the use of intravenous contrast. A utomated exposure control was utilized for this study. A dose lowering technique was utilized adheri ng to the principles of ALARA. Comparison: Head CT 04/22/2013. Findings: The paranasal sinuses and mastoid air cells are clear. The calvarium and skull base are int act. There is no mass, hematoma, midline shift, acute infarct. White matter hypodensity is nonspecifi c but suggestive of microvascular ischemic change. The ventricles and sulci demonstrate mild age-rela severiano involutional changes. Impression: No acute intracranial abnormality. Atrophy and microvascular ischemic changes. ACT 112: Negative or not required by law. Electronically signed by: Mehdi Fontaine M.D. 04/16/2023 12:36 PM
--- NOTE | 2023-04-16 13:26 | Electrocardiogram Report ---
Test Reason : Blood Pressure : / mmHG Vent. Rate : 091 BPM Atrial Rate : 091 BPM P-R Int : 142 ms QRS Dur : 114 ms QT Int : 368 ms P-R-T Axes : 039 -16 029 degrees QTc Int : 452 ms Normal sinus rhythm Incomplete right bundle branch block Poor R wave progression, consider anterior NJ vs. lead placement vs. LVH Abnormal ECG When compared with ECG of 22-MAY-2021 22:55, No significant change was found Confirmed by Marcio Aguilar ([id number]) on 04/16/2023 1:26:00 PM Referred By: Confirmed By:Marcio Aguilar
--- NOTE | 2023-04-16 13:30 | Electrocardiogram Report ---
Test Reason : Blood Pressure : / mmHG Vent. Rate : 100 BPM Atrial Rate : 100 BPM P-R Int : 156 ms QRS Dur : 108 ms QT Int : 360 ms P-R-T Axes : 073 026 015 degrees QTc Int : 464 ms Normal sinus rhythm Incomplete right bundle branch block Nonspecific ST and T wave abnormality Abnormal ECG When compared with ECG of 15-APR-2023 12:21, (unconfirmed) ST now depressed in Inferior leads Confirmed by Marcio Aguilar ([id number]) on 04/16/2023 1:29:55 PM Referred By: REFERRED SELF Confirmed By:Marcio Aguilar
--- NOTE | 2023-04-16 13:46 | Electrocardiogram Report ---
Test Reason : Blood Pressure : / mmHG Vent. Rate : 068 BPM Atrial Rate : 068 BPM P-R Int : 174 ms QRS Dur : 120 ms QT Int : 424 ms P-R-T Axes : 052 011 007 degrees QTc Int : 450 ms Normal sinus rhythm Non-specific intra-ventricular conduction delay Borderline ECG When compared with ECG of 15-APR-2023 13:31, (unconfirmed) Non-specific intra-ventricular conduction delay has replaced Incomplete right bundle branch block Confirmed by Marcio Aguilar ([id number]) on 04/16/2023 1:45:39 PM Referred By: REFERRED SELF Confirmed By:Marcio Aguilar
[2023-04-16] MEDS ORDERED: GADOBUTROL 65ML VIAL IV ONE (15:34)
[2023-04-16] MEDS: GADOBUTROL 10ML VIAL IV ONE (15:34)
--- NOTE | 2023-04-16 15:57 | Magnetic Resonance Report ---
Brain MRI WITH AND WITHOUT CONTRAST HISTORY: dizziness, brain fog, headaches TECHNIQUE: Multiplanar multisequence MRI of the brain was performed both before and after the intrave nous administration of contrast. COMPARISON STUDY: Head CT 04/16/2023. FINDINGS: There is no mass, hematoma, midline shift, or acute infarct. The paranasal sinuses are moris r. The mastoid air cells are clear. The ventricles and sulci demonstrate mild age-related involutiona l changes. Scattered foci of T2 hyperintensity seen within the periventricular and subcortical white matter are nonspecific but suggestive of moderate microvascular ischemic changes. The major vascular flow voids at the skull base are well-maintained. No abnormal enhancement. IMPRESSION: No acute intracranial abnormality. Scattered foci of T2 hyperintensity seen within the periventricula r and subcortical white matter are nonspecific but favor microvascular ischemic change. ACT 112: Negative or not required by law. Electronically signed by: Mehdi Fontaine M.D. 04/16/2023 3:55 PM
--- NOTE | 2023-04-16 17:54 | Hospitalist Progress Note ---
Date of Service April 16, 2023 Assessment & Plan (1) Chest pain: Plan: Pt is a 70-year-old male with past medical history significant for hyperlipidemia, enlarged thoracic aorta, history of non-rheumatic mitral regurgitation, incomplete right bundle-branch block, hypertension, BPH, overactive bladder, osteoarthritis, lumbar radiculopathy, HTN, cervical spine stenosis, lumbar spinal stenosis, history of colonic polyps, overweight, chronic b/l shoulder pain, Hx Pneumothorax who presented to the ED with chest pain. Atypical Chest Pain Emphysema Pt presenting with chest pain associated with an episode of brain fog and dysarthria Troponin wnl x3 EKG with noted NSR with RBBB to nonspecific interventricular delay Echo with no acute changes Chest CTA noting no PE or aortic dissection but note emphysema- consider starting maintenance medication CT abd/pelvis showed no acute infectious or inflammatory findings are identified in the abdomen or pelvis but a concerning gastrohepatic lymph node. IV heparin drip was started in the ER due to ongoing chest pain and shoulders pain, has since been discontinued Received IV morphine in the ER that helped Cardiology consulted- appreciate recs -recommending outpt stress test Continue morphine and tylenol for pain Will monitor closely in telemetry Brain Fog Dysarthria ?TIA Head CT and brain MRI unremarkable Echo as above Atorvastatin 40mg and aspirin 81mg added by cardiology in setting of concurrent coronary calcifications noted Neurology consulted- appreciate recs -CTA head and neck -EEG -cut down on alcohol use as it can cause temporal lobe dysfunction -Zio patch on discharge -neurology outpt followup Alcohol Use Pt reportedly drinks 2 beers a day for a few decades Started on AWSS protocol Hyperglycemia Hgba1c of 5.6, currently within normal limits Continue to monitor glucose levels Leukocytosis Possible reactive No sign of infection Continue to monitor CBC Chronic shoulder pain Cervical pain Lumbar spine pain Continue pain control with tylenol and morphine prn History of hyperlipidemia Continue statin Hypertension BP stable Continue lisinopril Amlodipine added by cardiology BPH Continue proscar Will monitor for any urinary retention. DVT prophylaxis: heparin SQ Code status: Full code Dispo: Admission and Anticipated Discharge Date Admission Date: April 15, 2023 Subjective pt seen multiple times during the day. Extensive discussion about his Hx and presentation. Concerned about his chest pain and inability to have a diagnosis. Also concerned about associated dizziness, brain fog, dysarthria that occurred at the time. Today he notes that when he lays down on his left side, he feels like he stops breathing for some time. Review of Systems Review of Systems: All systems reviewed & are unremarkable except as noted in Subjective Physical Exam Physical Exam: General: Alert, oriented. No acute distress Skin: No noted rashes or bruises Psych: Appropriate mood and affect Neuro: No gross deficits HEENT: NC/AT Chest: Nontender to palpation. CV: RRR Resp: Breath sounds clear bilaterally, no increased effort of breathing. Abdomen: Soft, nontender, nondistended. No guarding. No organomegaly appreciated. Extremities: No edema in lower extremities bilaterally. Results & Data Results & Data Vital Signs (Past 12 Hours) Vital Signs Temp Pulse Pulse Resp BP BP Pulse Ox 04/16/23 11:34 36.8 C 66 18 165/85 H 97 04/16/23 07:45 69 04/16/23 07:38 36.7 C 68 16 157/86 H 96 04/16/23 03:59 36.7 C 102 H 18 152/87 H 94 04/16/23 00:44 36.6 C 78 18 158/87 H 94 O2 Del Method 04/16/23 11:34 Room Air 04/16/23 07:45 04/16/23 07:38 Room Air 04/16/23 03:59 Room Air 04/16/23 00:44 Room Air (1) Chest pain Chest pain type: unspecified Qualified Code(s): R07.9 - Chest pain, unspecified
--- NOTE | 2023-04-16 18:51 | Neurology Consultation ---
Date of Consultation April 16, 2023 Assessment & Plan (1) TIA (transient ischemic attack): Differential diagnosis includes TGA, TIA, hypoperfusion event.(mild dehydration) on presentation MRI is reviewed and does not show any acute ischemia, mild to moderate microangiopathy. His exam is nonfocal with NIH of 0. Already started on aspirin and statin per cardiology Recommend CTA of the head and neck Echocardiogram reviewed and shows preserved ejection fraction with plans for outpatient stress test. Recommend Zio patch Recommended EEG. Please call neurology on-call for further recommendations after the above tests are done Recommend following up with outpatient neurology Telehealth Consultation Telehealth Information Telehealth Information: I performed this visit using a real-time telehealth connection between my location and the patients location ([facility]). After connecting through interactive tele-video, patient was identified by name and date of and/or wristband check.Patient (or authorized healthcare account maintenance representative) was informed that this was a telemedicine visit and it was being conducted confidentially over secure lines. My office door was closed and no o ne else was present in the room with me.Patient (or authorized healthcare account maintenance representative) provided consent to proceed with the visit, expressed an understanding of privacy and security of the telemedicine visit, and gave permission to have a hospital account maintenance representative in the room in order to assist with the visit and to conduct portions of the visit, as needed. I informed the patient (or authorized healthcare account maintenance representative) that I reviewed their record and presented the opportunity for them to ask any questions regarding the visit today. The patient agreed to participate. History of Present Illness Reason for Consultation: Confusion Requesting Physician: dr Louie. Attending Physician: Shannan Louie MD History of Present Illness Temp Pulse Resp BP Pulse Ox O2 Del Method 04/15/23 14:00 87 15 141/101 H 100 04/15/23 13:00 94 H 23 180/104 H 97 04/15/23 13:00 96 H 04/15/23 12:25 97 Room Air 04/15/23 12:25 37.2 C 97 H 20 211/97 H 97 Room Air Finn Armas is a 72-year-old male patient with a PMH of HTN, DJD, left shoulder arthritis, coronary artery calcifications, aortic root enlargement who presented to the hospital with chest pain and confusion. He tells me that he was at his workplace, walking around in the parking lot when he suddenly felt significant shoulder pain, he felt lightheaded and dizzy his legs felt weak and his balance felt off, he went inside and sat on his office, he did not talk to anyone in person but his son called him over the phone and tried to give him a phone number which she could not right, could not understand the numbers. Later on his called and noticed that his speech was slurred so she called the ambulance and upon EMS arrival the patient had shortness of breath with significant chest pain. In the emergency room he was worked up with a CTA of the chest, cardiology were consulted for chest pain. He reports being very foggy and confused in the emergency room he does not rem ember getting an MRI. When he woke up this morning he was feeling better he still does not feel 100%. He reports that last Monday he had a similar event where he had difficulty with paperwork so that he usually do easily. He also reports having a cough for over a week with some sinus issues. He drinks 2 beers a day for over 25 years. In the chart there is reports of head concussion which she does not remember. Reports his memory has been good. Allergies Allergy/AdvReac Type Severity Reaction Status Date / Time vibegron AdvReac Intermediate Flushing Verified 04/15/23 14:45 Home Medications Medication Instructions Recorded Confirmed Type ascorbic acid (vitamin C) 500 mg 1,000 mg PO QAM 04/11/19 04/15/23 History tablet (Vitamin C) cholecalciferol (vitamin D3) 25 1,000 unit PO QAM 04/11/19 04/15/23 History mcg (1,000 unit) capsule (Vitamin D3) cyanocobalamin (vitamin B-12) 500 500 mcg PO QAM 04/11/19 04/15/23 History mcg tablet glucosamine sulf dipot 1 cap PO QAM 04/11/19 04/15/23 History chlr,msm,chond 550 mg-C 30 mg-jes 1 mg capsule (Glucosamine Chondroitin) multivitamin 1 tab PO QAM 04/11/19 04/15/23 History atorvastatin 20 mg tablet (Lipitor) 20 mg PO QPM 05/22/21 04/15/23 History lisinopril 10 mg tablet 10 mg PO QAM 05/22/21 04/15/23 History finasteride 5 mg tablet 5 mg PO QAM 04/03/23 04/15/23 History Patient History Medical History Cervical disc disorder with myelopathy Collapsed lung S/p most recent cervical fusion 05/18/2021 - right thoravent placed @ [facility] 05/24/21 for right sided pneumothorax (resolution of pneumothorax per 05/26/21 CXR) Hypertension Incomplete right bundle branch block (RBBB) Follows w/ Dr Elizondo last visit 04/2021 Enlarged aorta F/U DR ELIZONDO ANNUALLY- BORDERLINE ENLARGEMENT OF ASCENDING AORTA (3.8CM) AND AORTIC ROOT (3.9CM) PER 11/03/20 ECHO Spinal stenosis PAIN TO BILAT LEGS Hyperlipidemia Surgical History S/P cataract extraction b/l S/P chest tube placement 05/2021 [facility] S/P inguinal hernia repair S/P laminectomy Pilonidal cyst REMOVAL OF S/P wrist surgery GANGLION Hx of hand surgery R/L History of repair of rotator cuff R/L Fusion of spine CERVICAL-x 3 last one 04/2021 @ [facility] History of colonoscopy Family History Brother Prostate cancer Hypertension Social History Smoking Status: Former smoker Second Hand Exposure: No; Do You Dip or Chew Tobacco: No; Tobacco Cessation Education Requested by Patient: No Hx Alcohol Use: Yes Alcohol type: beer Hx Substance Use: No Preferred Language: Uzbek Communication Ability: Effective Thermospray Operator Required: No Beliefs That Will Affect Care: None Current Living Situation: Spouse current occupational status: employed Other Information That Helps Us Care for You: No Feels Safe at Home: Yes Safety Concerns: Feels Safe At This Time Assistive Devices: Glasses and Hearing Aid - Bilateral Assistive Devices Comment: with Review of Systems Negative except the points mentioned in H &P Physical Exam General Constitutional: Appearance normally developed Head and face: normocephalic and atraumatic Eyes: no ptosis, no anisocoria, and no dysconjugate gaze Respiratory: normal effort Cardiovascular: regular rhythm and regular rate Abdomen: non distended Skin: no rashes, lesions, or ulcers noted Psychiatric: normal judgement and insight, normal mood, and normal affect NEUROLOGIC EXAMINATION: Mental Status:alert, oriented to time, place, person, normal recent memory, normal remote memory, normal attention span, normal concentration, normal language and normal fund of knowledge Cranial Nerves: CN 2 - no visual defect on confrontation and pupils round, equal, reactive to light CN 3, 4, 6 - extra-ocular movements intact and no nystagmus CN 5 - facial sensation intact CN 7 - no facial asymmetry CN 8 - intact hearing CN 9, 10 - palate symmetric, normal gag CN 11 - good shoulder shrug CN 12 - tongue midline MOTOR: Strength was at least antigravity throughout, Pronator drift was absent and There were no abnormal movements SENSATION: intact and symmetric to pinprick, light touch, vibration and joint position GAIT: stable, no ataxia and can perform tandem walking COORDINATION: no ataxia with finger to nose testing and heel to brown testing REFLEXES: cannot assess over telemedicine Results & Data Vital Signs (Past 12 Hours) Vital Signs Temp Pulse Pulse Resp BP BP Pulse Ox 04/16/23 15:19 70 04/16/23 11:34 36.8 C 66 18 165/85 H 97 04/16/23 07:45 69 04/16/23 07:38 36.7 C 68 16 157/86 H 96 O2 Del Method 04/16/23 15:19 04/16/23 11:34 Room Air 04/16/23 07:45 04/16/23 07:38 Room Air Laboratory Results Laboratory Results - last 24 hr 04/15/23 04/16/23 20:24 04:55 WBC 9.00 RBC 4.43 L Hgb 13.1 L Hct 38.9 L MCV 87.8 MCH 29.6 MCHC 33.7 RDW Std Deviation 38.6 RDW Coeff of Gael 12.0 Plt Count 189 MPV 9.5 Heparin Anti-Xa, Unfract 0.36 Sodium 138 Potassium 4.1 Chloride 106 Carbon Dioxide 24 Anion Gap 8 BUN 18 Creatinine 0.68 Est Cr Clr Drug Dosing 111.0 Est GFR ( Amer) 109.8 Est GFR (Non-Af Amer) 94.7 BUN/Creatinine Ratio 26.5 H Glucose 115 H Estimat Average Glucose 114 Hemoglobin A1c 5.6 Calcium 9.3 Troponin I High Sens 3.5 Triglycerides 42 Cholesterol 168 LDL Cholesterol, Calc 74 VLDL Cholesterol, Calc 8 HDL Cholesterol 86 Cholesterol/HDL Ratio 2.[address] 04/16/23 11:[address] DOSE: 688.24 mGy.cm HISTORY: Transient confusion and motor weakness TECHNIQUE: Multiaxial CT images of the head were performed without the use of intravenous contrast. Automated exposure control was utilized for this study. A dose lowering technique was utilized adhering to the principles of ALARA. Comparison: Head CT 04/22/2013. Findings: The paranasal sinuses and mastoid air cells are clear. The calvarium and skull base are intact. There is no mass, hematoma, midline shift, acute infarct. White matter hypodensity is nonspecific but suggestive of microvascular ischemic change. The ventricles and sulci demonstrate mild age-related involutional changes. Impression: No acute intracranial abnormality. Atrophy and microvascular ischemic changes. ACT 112: Negative or not required by law. Electronically signed by: Mehdi Fontaine M.D. 04/16/2023 12:36 PM Brain MRI 04/16/23 12:28 Brain MRI WITH AND WITHOUT CONTRAST HISTORY: dizziness, brain fog, headaches TECHNIQUE: Multiplanar multisequence MRI of the brain was performed both before and after the intravenous administration of contrast. COMPARISON STUDY: Head CT 04/16/2023. FINDINGS: There is no mass, hematoma, midline shift, or acute infarct. The paranasal sinuses are clear. The mastoid air cells are clear. The ventricles and sulci demonstrate mild age-related involutional changes. Scattered foci of T2 hyperintensity seen within the periventricular and subcortical white matter are nonspecific but suggestive of moderate microvascular ischemic changes. The major vascular flow voids at the skull base are well-maintained. No abnormal enhancement. IMPRESSION: No acute intracranial abnormality. Scattered foci of T2 hyperintensity seen within the periventricular and subcortical white matter are nonspecific but favor microvascular ischemic change. ACT 112: Negative or not required by law. Electronically signed by: Mehdi Fontaine M.D. 04/16/2023 3:55 PM Echocardiogram:04/15/2023: shows EF of 65 to 70%, grade 1 diastolic dysfunction, normal atrial size, no evidence of atrial septal defect but resolution does not allow assessment of PFO Medications Administered Home Medications Medication Instructions Recorded Confirmed Last Taken ascorbic acid (vitamin C) 500 mg 1,000 mg PO QAM 04/11/19 04/15/23 04/15/23 tablet (Vitamin C) cholecalciferol (vitamin D3) 25 1,000 unit PO QAM 04/11/19 04/15/23 04/15/23 mcg (1,000 unit) capsule (Vitamin D3) cyanocobalamin (vitamin B-12) 500 500 mcg PO QAM 04/11/19 04/15/23 04/15/23 mcg tablet glucosamine sulf dipot 1 cap PO QAM 04/11/19 04/15/23 10/09/21 06:00 chlr,msm,chond 550 mg-C 30 mg-jes 1 mg capsule (Glucosamine Chondroitin) multivitamin 1 tab PO QAM 04/11/19 04/15/23 04/15/23 atorvastatin 20 mg tablet (Lipitor) 20 mg PO QPM 05/22/21 04/15/23 04/14/23 lisinopril 10 mg tablet 10 mg PO QAM 05/22/21 04/15/23 04/15/23 finasteride 5 mg tablet 5 mg PO QAM 04/03/23 04/15/23 04/15/23 Active Medications Generic Name Dose Route Start Last Admin Trade Name Freq PRN Reason Stop Dose Admin Acetaminophen 650 mg 04/15/23 16:36 04/16/23 07:43 Acetaminophen 325 Mg Tab PO 05/15/23 16:35 650 mg Q6H PRN Administration pain Ascorbic Acid 1,000 mg 04/16/23 09:00 04/16/23 08:40 Ascorbic Acid 500 Mg Tab PO 05/16/23 08:59 1,000 mg QAM YURY Administration Aspirin 81 mg 04/16/23 09:15 04/16/23 10:00 Aspirin 81 Mg Ectab PO 05/16/23 09:14 81 mg DAILY YURY Administration Atorvastatin Calcium 40 mg 04/16/23 11:30 04/16/23 12:23 Atorvastatin 40 Mg Tab PO 05/16/23 11:29 40 mg QDL YURY Administration Cyanocobalamin 500 mcg 04/16/23 09:00 04/16/23 08:40 Cyanocobalamin (B-12) 500 Mcg Tablet PO 05/16/23 08:59 500 mcg QAM YURY Administration Finasteride 5 mg 04/16/23 09:00 04/16/23 08:40 Finasteride 5 Mg Tab PO 05/16/23 08:59 5 mg QAM YURY Administration Lisinopril 10 mg 04/16/23 09:00 04/16/23 08:40 Lisinopril 10 Mg Tab PO 05/16/23 08:59 10 mg QAM YURY Administration Multivitamins 1 tab 04/16/23 09:00 04/16/23 08:41 Multivitamin Tab PO 05/16/23 08:59 1 tab QAM YURY Administration Vitamin D 25 mcg 04/16/23 09:00 04/16/23 08:40 Cholecalciferol 25 Mcg (1000 Units) Tab PO 05/16/23 08:59 25 mcg QAM YURY Administration ECG Additional Comments: Sinus rhythm with RBBB
[2023-04-16] MEDS ORDERED: LORazepam 1 MG TAB PO PRN ×3 (19:31)
[2023-04-16] MEDS ORDERED: Ativan PO Alcohol Withdrawal--Active Protocol PO PRN (19:31)
[2023-04-16] MEDS: OPTIRAY 320 125ml IV ONE (19:57)
--- NOTE | 2023-04-16 21:13 | CT Scan Report ---
Exam(s): CTA NECK With Contrast IV Amt: OPTIRAY 320 114M EXAM: CT Angiography Neck With Intravenous Contrast CLINICAL HISTORY: Reason for exam: confusion, dysarthria. TECHNIQUE: Routine carotid CT angiography protocol was performed with intravenous contrast. NASCET criteria using the distal ICAs for comparison were used for evaluation of stenoses. Automated exposure control was utilized for the study. A dose lowering technique was utilized adhering to the principles of ALARA. MIP reconstructed images were created and reviewed. CONTRAST: Patient received OPTIRAY 320 114M of IV contrast COMPARISON: None. FINDINGS: Right common carotid artery: Patent. Right internal carotid artery: Patent. Right vertebral artery: Patent. Left common carotid artery: Patent. Left internal carotid artery: Patent. Left vertebral artery: Patent. Left dominant system. Other: Mild atherosclerosis bilateral carotid bifurcation, without significant stenosis. Severe emphysema. Metal artifact from postsurgical change and hardware in the lower cervical spine. IMPRESSION: 1. No dissection, occlusion, or significant stenosis. CAROTID STENOSIS REFERENCE USING NASCET CRITERIA: % ICA stenosis = (1 - narrowest ICA diameter/diameter of distal cervical ICA) x 100. Mild - <50% stenosis. Moderate - 50-69% stenosis. Severe - 70-94% stenosis. Near occlusion - 95-99% stenosis. Occluded - 100% stenosis. Electronically signed by: Mariela Ryan M.D. 04/16/23 21:12 PM
--- NOTE | 2023-04-16 21:14 | CT Scan Report ---
Exam(s): CTA HEAD With Contrast IV Amt: OPTIRAY 320 114M EXAM: CT Angiography Head With Intravenous Contrast CLINICAL HISTORY: Reason for exam: confusion, dysarthria. TECHNIQUE: Axial computed tomographic angiography images of the head with intravenous contrast. Automated exposure control was utilized for the study. A dose lowering technique was utilized adhering to the principles of ALARA. Optiray 320 IV contrast is given. MIP reconstructed images were created and reviewed. CONTRAST: Patient received OPTIRAY 320 114M of IV contrast COMPARISON: No relevant prior studies available. FINDINGS: Right internal carotid artery: Patent. Right anterior cerebral artery: Patent. Right middle cerebral artery: Patent. Right posterior cerebral artery: Patent. Right vertebral artery: Patent. Left internal carotid artery: Patent. Left anterior cerebral artery: Patent. Left middle cerebral artery: Patent. Left posterior cerebral artery: Patent. Left vertebral artery: Patent. Basilar artery: Patent. Other: Mild atherosclerosis bilateral cavernous ICA, without significant stenosis. IMPRESSION: 1. No aneurysm or large vessel occlusion. Electronically signed by: Mariela Ryan M.D. 04/16/23 21:13 PM
[2023-04-16] MEDS: HEPARIN SOD 5,000 UNIT/0.5 ML VIAL SQ SCH (21:18)
[2023-04-17 07:06] LABS: Basophils # (auto) 0.04 K/uL (0.00-0.20); Basophils % (auto) 0.6 %; Eosinophils # (auto) 0.09 K/uL (0.00-0.50); Eosinophils % (auto) 1.3 %; Hematocrit (blood only) 39.7 % (42.0-52.0); Hemoglobin 13.3 g/dl (14.0-18.0); Immature Granulocytes # (auto) 0.01 K/uL (0.01-0.20); Immature Granulocytes % (auto) 0.1 %; Lymphocytes # (auto) 1.88 K/uL (1.20-3.40); Mean Corpuscular Hemoglobin 29.7 pg (25.0-34.0); Mean Corpuscular Hgb Conc 33.5 g/dL (32.0-36.0); Mean Corpuscular Volume 88.6 fL (80.0-100.0); Mean Platelet Volume 9.7 fL (9.4-12.4); Monocytes # (auto) 0.65 K/uL (0.11-0.59); Monocytes % (auto) 9.3 %; Neutrophils % (auto) 61.7 %; Platelet Count 178 K/uL (130-400); RDW Standard Deviation 38.8 fL (36.4-46.3); Red Blood Count 4.48 M/uL (4.70-6.10); White Blood Count 6.97 K/ul (4.8-10.8)
[2023-04-17 07:24] LABS: Albumin Globulin Ratio 1.6 (0.9-2); Albumin Level 4.2 gm/dl (3.4-5.0); BUN Creatinine Ratio 28.4 (10-20); Bilirubin,Total 0.7 mg/dl (0.2-1.0); Calcium 9.3 mg/dl (8.6-10.3); Creatinine Clr Calc Pharmacy 102.2 ml/min; Est GFR (African American) 106.1 ml/min; Est GFR (Non-African American) 91.5 ml/min; Globulin 2.6 gm/dl (2.5-4.0); Magnesium 2.1 mg/dl (1.7-2.4); Phosphorus 3.4 mg/dl (2.5-4.9); Potassium 4.2 mmol/L (3.5-5.1); Total Protein 6.8 gm/dl (6.0-8.3)
--- NOTE | 2023-04-17 11:29 | Electroencephalogram ---
EEG Procedure Note Date of Service April 17, 2023 Start / End Times Start Time: 10:01 End Time: 10:21 Referring Physician Shannan Louie History A 72-year-old male with confusion. EEG performed for evaluation of epileptiform activity. Home Medication List Medication Instructions Recorded Confirmed Type ascorbic acid (vitamin C) 500 mg 1,000 mg PO QAM 04/11/19 04/15/23 History tablet (Vitamin C) cholecalciferol (vitamin D3) 25 1,000 unit PO QAM 04/11/19 04/15/23 History mcg (1,000 unit) capsule (Vitamin D3) cyanocobalamin (vitamin B-12) 500 500 mcg PO QAM 04/11/19 04/15/23 History mcg tablet glucosamine sulf dipot 1 cap PO QAM 04/11/19 04/15/23 History chlr,msm,chond 550 mg-C 30 mg-jes 1 mg capsule (Glucosamine Chondroitin) multivitamin 1 tab PO QAM 04/11/19 04/15/23 History atorvastatin 20 mg tablet (Lipitor) 20 mg PO QPM 05/22/21 04/15/23 History lisinopril 10 mg tablet 10 mg PO QAM 05/22/21 04/15/23 History finasteride 5 mg tablet 5 mg PO QAM 04/03/23 04/15/23 History Inpatient Medication List Acetaminophen (Acetaminophen 325 Mg Tab) 650 mg PO Q6H PRN PRN Reason: pain Stop: 05/15/23 16:35 Last Admin: 04/16/23 21:25 Dose: 650 mg Documented By: Admin: 04/16/23 07:43 Dose: 650 mg Documented By: LELA Ascorbic Acid (Ascorbic Acid 500 Mg Tab) 1,000 mg PO QAM [facility] Stop: 05/16/23 08:59 Last Admin: 04/17/23 08:34 Dose: 1,000 mg Documented By: Admin: 04/16/23 08:40 Dose: 1,000 mg Documented By: LELA Aspirin (Aspirin 81 Mg Ectab) 81 mg PO DAILY [facility] Stop: 05/16/23 09:14 Last Admin: 04/17/23 08:34 Dose: 81 mg Documented By: Admin: 04/16/23 10:00 Dose: 81 mg Documented By: LELA Atorvastatin Calcium (Atorvastatin 40 Mg Tab) 40 mg PO QDL [facility] Stop: 05/16/23 11:29 Last Admin: 04/16/23 12:23 Dose: 40 mg Documented By: LELA Cyanocobalamin (Cyanocobalamin (B-12) 500 Mcg Tablet) 500 mcg PO QAM [facility] Stop: 05/16/23 08:59 Last Admin: 04/17/23 08:34 Dose: 500 mcg Documented By: Admin: 04/16/23 08:40 Dose: 500 mcg Documented By: LELA Finasteride (Finasteride 5 Mg Tab) 5 mg PO QAM [facility] Stop: 05/16/23 08:59 Last Admin: 04/17/23 08:34 Dose: 5 mg Documented By: Admin: 04/16/23 08:40 Dose: 5 mg Documented By: LELA Heparin Sodium (Porcine) (Heparin Sod 5,000 Unit/0.5 Ml Vial) 5,000 units SQ Q12 [facility] Stop: 05/16/23 20:59 Last Admin: 04/17/23 08:34 Dose: 5,000 units Documented By: Admin: 04/16/23 21:18 Dose: 5,000 units Documented By: DOUG Lisinopril (Lisinopril 10 Mg Tab) 10 mg PO QAM [facility] Stop: 05/16/23 08:59 Last Admin: 04/17/23 08:34 Dose: 10 mg Documented By: Admin: 04/16/23 08:40 Dose: 10 mg Documented By: LELA Multivitamins (Multivitamin Tab) 1 tab PO QAM [facility] Stop: 05/16/23 08:59 Last Admin: 04/17/23 08:34 Dose: 1 tab Documented By: Admin: 04/16/23 08:41 Dose: 1 tab Documented By: LELA Vitamin D (Cholecalciferol 25 Mcg (1000 Units) Tab) 25 mcg PO QAM [facility] Stop: 05/16/23 08:59 Last Admin: 04/17/23 08:34 Dose: 25 mcg Documented By: Admin: 04/16/23 08:40 Dose: 25 mcg Documented By: LELA Discontinued Medications Gadobutrol (Gadobutrol 10ml Vial) 9 ml IV ONCE ONE Stop: 04/16/23 15:35 Last Admin: 04/16/23 15:34 Dose: 9 ml Documented By: MARLENI Heparin Sodium (Porcine) (Heparin Sod (Porcine) 1000 Unit/Ml) 1 units IV NOW ONE Stop: 04/15/23 14:12 Last Admin: 04/15/23 14:36 Dose: 4,000 units Documented By: MILAN Co-signed By: CRIS Heparin Sodium/Dextrose (Heparin Iv Adult Wt-Based Low-Dose W/ Initial Bolus Protocol) 1 each IV NOW STA; Protocol Stop: 04/15/23 13:56 Last Admin: 04/15/23 15:05 Dose: Not Given Documented By: CRIS Heparin Sodium/Dextrose (Heparin Iv Adult Wt-Based Low-Dose W/ Initial Bolus Protocol) 1 each IV Q15M YURY; Protocol Stop: 04/15/23 15:01 Last Admin: 04/15/23 15:21 Dose: Not Given Documented By: Admin: 04/15/23 15:21 Dose: Not Given Documented By: Admin: 04/15/23 15:17 Dose: Not Given Documented By: Admin: 04/15/23 14:43 Dose: Not Given Documented By: MILAN Sodium Chloride (Nss) 500 mls @ 999 mls/hr IV .Q31M STA Stop: 04/15/23 12:52 Last Infusion: 04/15/23 13:28 Dose: Infused Documented By: Admin: 04/15/23 12:32 Dose: 999 mls/hr Documented By: CRIS Heparin Sodium/Dextrose (Heparin Sodium/Dextrose) 25,000 units in 500 mls @ 20 mls/hr IV .Q24H [facility]; Protocol Stop: 05/15/23 14:14 Last Titration: 04/15/23 21:53 Dose: Infused Documented By: TRUDY Co-signed By: IRENA Admin: 04/15/23 14:36 Dose: 1,000 units/hr, 20 mls/hr Documented By: MILAN Co-signed By: CRIS Ioversol (Optiray 320 125ml) 118 ml IV ONCE ONE Stop: 04/15/23 12:42 Last Admin: 04/15/23 12:41 Dose: 118 ml Documented By: RONI Ioversol (Optiray 320 125ml) 114 ml IV ONCE ONE Stop: 04/16/23 19:58 Last Admin: 04/16/23 19:57 Dose: 114 ml Documented By: RONI Lorazepam (Lorazepam 1 Mg/1 Ml Syr Ed Inj Use) 1 mg IV ONE STA Stop: 04/15/23 13:29 Last Admin: 04/15/23 13:33 Dose: 1 mg Documented By: OAC Morphine Sulfate (Morphine Sulfate 4 Mg/Ml 1 Ml Carp\Vial) 4 mg IV NOW STA Stop: 04/15/23 12:24 Last Admin: 04/15/23 12:31 Dose: 4 mg Documented By: OAC Morphine Sulfate (Morphine Sulfate 4 Mg/Ml 1 Ml Carp\Vial) 4 mg IV NOW STA Stop: 04/15/23 13:29 Last Admin: 04/15/23 13:33 Dose: 4 mg Documented By: OAC Ondansetron HCl (Ondansetron Inj 2 Mg/Ml 2 Ml Vial) 4 mg IV NOW STA Stop: 04/15/23 12:24 Last Admin: 04/15/23 12:31 Dose: 4 mg Documented By: OAC Description This is a 21 electrode EEG with a single channel dedicated to limited EKG. The electrodes were placed in accordance with the International 10-20 system. Report: At the onset of the EEG the patient is awake. The background is symmetric and continuous. The posterior dominant rhythm is 8 Hz with faster frequencies in the frontal head region. Drowsiness is characterized by increased theta activity, reduced blink rate, and decreased myogenic artifact. Photic stimulation does not induce any abnormalities. No stage 2 sleep transients are seen. Interpretation Impression: This is an abnormal awake and drowsy routine EEG due to mild generalized background slowing suggestive of a mild nonspecific encephalopathy. No electrographic seizures or epileptiform discharges are seen.
--- NOTE | 2023-04-17 11:55 | Discharge Summary ---
Discharge Summary Date of Service April 17, 2023 Notes For Next Care Provider Pt was seen and evaluated by Neurology for likely transient ischemic attack. They recommended the following: -take atorvastatin 40mg daily -take a daily baby aspirin 81mg -cut down on daily alcohol use as it can affect the temporal lobe in the brain, contributing to symptoms -Zio patch (please order for pt) -follow up with neurology as an outpatient Pt was also seen by Cardiology for chest pain. They recommended the following: -continue with atorvastatin 40mg and baby aspirin as noted above -outpatient stress test -cardiology follow up -consider addition of amlodipine 5mg to home lisinopril 10mg for additional blood pressure control Per Urology Dr. Krishnamurthy, they will re-schedule outpatient Urogram with followup with Dr Krishnamurthy in mid April. Pt with noted emphysema on imaging, consider follow up to address. Pt had enlarged gastrohepatic lymph node on imaging- please follow up Medication Changes From Visit Per cardiology and Neurology: -Atorvastatin 40mg daily -aspirin 81mg daily Admission HPI Per Admitting Provider 70-year-old male with past medical history significant for hyperlipidemia, enlarged thoracic aorta, history of non-rheumatic mitral regurgitation, incomplete right bundle-branch block, hypertension, BPH, overactive bladder, osteoarthritis, lumbar radiculopathy, HTN, cervical spine stenosis, lumbar spinal stenosis, history of colonic polyps, overweight, chronic b/l shoulder pain, Hx Pneumothorax present to the ED with chest pain. Pt said that this morning while walking to his properties he developed left side shoulder pain, then right sided shoulder pain. he said that he has chronic shoulder pain, but today the pain were intense then associated with chest pain. Pt described the chest pain as a sharp and burning feeling that located in the mid sternum area. Pt said chest pain and shoulders pain started 5 minutes after lifting about 50 lbs weight. said that he is not supposed to lift any heavy object. Pt replied that he thinks it was about 35 lbs. Pt said that he feels he had some breathing problems. Morphine IV given in the ER, helped with the pain. Currently denies any fever, chills, dizziness, palpitation and SOB and dysuria. CT showed unremarkable CT angiogram of the thoracic aorta. no airspace consolidation typical for pneumonia or pleural effusion. focus of subsolid pleural thickening on the right minor fissure. CT abd/pelvis showed no acute infectious or inflammatory findings are identified in the abdomen or pelvis. Lab showed normal troponin, lipase, LFT. EKG showed no acute ischemic changes. Due to ongoing chest discomfort, pt was starting on IV heparin drip by the ER provider Admission Exam Per Admitting Provider General- No acute distress Head- atraumatic Eyes- PERRL, EOMI, ENT- oropharynx clear Neck- supple, no JVD Lungs- clear to auscultation Heart- regular rhythm; Abdomen- normal bowel sounds, soft, +tender with deep palpation Extremities- no calf tenderness, left shoulder pain with palpation Neuro- alert, oriented x 3; PERRL, EOMI; no facial palsy; no dysarthria Skin- warm & dry Principal Dx & Hospital Course #1 = Principal Diagnosis (1) Chest pain: Plan Pt is a 70-year-old male with past medical history significant for hyperlipidemia, enlarged thoracic aorta, history of non-rheumatic mitral regurgitation, incomplete right bundle-branch block, hypertension, BPH, overactive bladder, osteoarthritis, lumbar radiculopathy, HTN, cervical spine stenosis, lumbar spinal stenosis, history of colonic polyps, overweight, chronic b/l shoulder pain, Hx Pneumothorax who presented to the ED with chest pain. Atypical Chest Pain Emphysema HTN Pt presenting with chest pain associated with an episode of brain fog and dysarthria Troponin wnl x3 EKG with noted NSR with RBBB to nonspecific interventricular delay on repeat EKG Echo with no acute changes Chest CTA noting no PE or aortic dissection but note emphysema- consider starting maintenance medication CT abd/pelvis showed no acute infectious or inflammatory findings are identified in the abdomen or pelvis but a concerning gastrohepatic lymph node. PCP followup recommended. IV heparin drip was started in the ER due to ongoing chest pain and shoulder pain, has since been discontinued Received IV morphine in the ER that helped Cardiology consulted- appreciate recs -recommending outpt stress test -continue with atorvastatin 40mg and baby aspirin as noted above -cardiology follow up -consider addition of amlodipine 5mg to home lisinopril 10mg for additional blood pressure control PCP and cardiology follow up after discharge Brain Fog Dysarthria TIA Head CT and brain MRI unremarkable Head and neck CTA unremarkable for acute changes EEG with no seizures Echo as above Atorvastatin 40mg and aspirin 81mg added by cardiology in setting of concurrent coronary calcifications noted Neurology consulted- appreciate recs -cut down on alcohol use as it can cause temporal lobe dysfunction -Zio patch (please order at follow up) -neurology outpt followup Alcohol Use Pt reportedly drinks 2 beers a day for a few decades Started on AWSS protocol Encouraged cessation Hyperglycemia Hgba1c of 5.6, currently within normal limits Continue to monitor glucose levels Leukocytosis Possible reactive No sign of infection Continue to monitor CBC Chronic shoulder pain Cervical pain Lumbar spine pain Continue pain control with tylenol and morphine prn History of hyperlipidemia Continue statin Hypertension BP stable Continue lisinopril Consider addition of amlodipine 5mg to home lisinopril 10mg for additional blood pressure control. Pt's BP was within normal limits on discharge. BPH Continue proscar Discharge Exam General: Alert, oriented. No acute distress Skin: No noted rashes or bruises Psych: Appropriate mood and affect Neuro: No gross deficits HEENT: NC/AT Chest: Nontender to palpation. CV: RRR Resp: Breath sounds clear bilaterally, no increased effort of breathing. Abdomen: Soft, nontender, nondistended. No guarding. No organomegaly appreciated. Extremities: No edema in lower extremities bilaterally. Updated Medication List Medication Instructions Recorded Confirmed Type ascorbic acid (vitamin C) 500 mg 1,000 mg PO QAM 04/11/19 04/15/23 History tablet (Vitamin C) cholecalciferol (vitamin D3) 25 1,000 unit PO QAM 04/11/19 04/15/23 History mcg (1,000 unit) capsule (Vitamin D3) cyanocobalamin (vitamin B-12) 500 500 mcg PO QAM 04/11/19 04/15/23 History mcg tablet glucosamine sulf dipot 1 cap PO QAM 04/11/19 04/15/23 History chlr,msm,chond 550 mg-C 30 mg-jes 1 mg capsule (Glucosamine Chondroitin) multivitamin 1 tab PO QAM 04/11/19 04/15/23 History lisinopril 10 mg tablet 10 mg PO QAM 05/22/21 04/15/23 History finasteride 5 mg tablet 5 mg PO QAM 04/03/23 04/15/23 History aspirin 81 mg tablet,delayed 81 mg PO DAILY #30 tabs 04/17/23 Rx release atorvastatin 40 mg tablet 40 mg PO DAILY #30 tabs 04/17/23 Rx Hospital Stay Data Consultations 04/15/23 13:55 Consult Cardiology Stat ED Decision to Admit Stat 04/16/23 18:00 Consult Neurology Routine Diagnostic Imagining Performed 04/15/23 12:22 CT abd pelvis IV con only Stat CT angio chest dissec wo/w con Stat 04/16/23 11:27 CT head/brain wo con Urgent 04/16/23 12:28 MRI Brain [MR brain wo/w con] Urgent 04/16/23 19:28 CTA head w con [CT angio head w con] Urgent CTA neck with con [CT angio neck with con] Urgent Abdomen/Pelvis CT 04/15/23 12:22 CT SCAN OF THE ABDOMEN AND PELVIS WITH IV CONTRAST CLINICAL HISTORY: Generalized abdominal pain. COMPARISON STUDY: No priors. TECHNIQUE: Following the IV administration of 118 cc of Optiray 320, CT scan of the abdomen and pelvis is performed from the lung bases to the proximal femora. Images are reviewed in the axial, sagittal, and coronal planes. IV contrast was administered without complication. A dose lowering technique was utilized adhering to the principles of ALARA. The examination is degraded by motion artifact, as well as by streak artifact from the arms which could not be elevated above the abdomen. FINDINGS: Lung bases: The heart is normal in size and without pericardial effusion. Emphysematous change is noted. There is bibasilar scarring/atelectasis. The lung bases are otherwise clear. Liver: The contrast-enhanced liver is normal in size and contour. The liver demonstrates diffusely diminished attenuation indicating steatosis. Fatty sparing is seen adjacent to the gallbladder fossa. There is no intrahepatic biliary ductal dilatation. The hepatic veins and portal veins are patent. A 2.4 cm hemangioma seen on image #20 and 13 of the concurrently performed chest CT. Gallbladder: Unremarkable. Spleen: Normal in size and attenuation. There are calcifications of the splenic capsule. Pancreas: Unremarkable. Adrenal glands: Unremarkable. Kidneys: The contrast enhanced kidneys are normal in size and without hydronephrosis. The kidneys enhance symmetrically. A 5.8 cm cyst is seen on the left. Abdominal vasculature: The abdominal aorta is normal in course and caliber noting moderate to advanced atherosclerotic calcification. Bowel: There is moderate to advanced colic diverticulosis without CT evidence of acute diverticulitis. No bowel obstruction is seen. The appendix is well-visual ized and normal. Peritoneum: There is no intraperitoneal free air or abdominal ascites. There is a fat-containing umbilical hernia. Lymphadenopathy: There is a mildly enlarged gastrohepatic node seen on image #82. This measures 11 mm short axis. No Additional enlarged lymph nodes are seen in the abdomen or pelvis. Pelvic viscera: The prostate gland is diminutive and heterogeneous. The bladder wall appears thickened/trabeculated indicating chronic outlet obstruction. Skeletal structures: The skeletal structures are osteopenic. There is mild lumbosacral spondylosis. No lytic or blastic lesions are seen. IMPRESSION: 1. No acute infectious or inflammatory findings are identified in the abdomen or pelvis. 2. Hepatic steatosis. 3. A mildly enlarged upper abdominal lymph node is of indeterminate etiology and significance. Clinical correlation will be required. 4. Colonic diverticulosis without CT evidence of acute diverticulitis. 5. Additional findings as above. ACT 112: Negative or not required by law. Electronically signed by: Jerry Ni M.D. 04/15/2023 1:00 PM Chest CTA 04/15/23 12:22 CT ANGIOGRAM OF THE CHEST COMBO CLINICAL HISTORY: Atypical chest pain. Back pain. COMPARISON STUDY: Chest x-ray dated 05/24/2021. TECHNIQUE: Before and following the IV administration of 118 cc of Optiray 320, CT angiogram of the chest was performed from the thoracic inlet to the upper abdomen utilizing the dissection protocol. Images are reviewed in the axial, sagittal, and coronal planes. 3-D MIPS images are created and assessed. IV contrast was administered without complication. A dose lowering technique was utilized adhering to the principles of ALARA. The examination is degraded by motion artifact, as well as by streak artifact from the arms which could not be elevated above the chest. CT DOSE: 4158.18 mGy.cm FINDINGS: Thyroid: Imaged portions of the thyroid gland are normal in size and attenuation. Thoracic aorta: No intramural hematoma is seen on the unenhanced series. There is atherosclerotic calcification of the thoracic aorta, which is normal in caliber and demonstrates bovine variant arch anatomy. No dissection is seen. The arch vessels are widely patent. Pulmonary vasculature: The pulmonary trunk is normal in caliber. There are no central filling defects identified in the pulmonary vessels to suggest pulmonary embolus. Note that this examination was not specifically protocoled to assess for pulmonary emboli. Heart: The heart is top normal in size and without pericardial effusion. The coronary arteries are densely calcified. Lungs and pleural spaces: Emphysematous change is noted. There is no airspace consolidation or pleural effusion. The trachea and central airways are clear. Foci of probable scarring are seen throughout both lungs, greatest at the lung bases. Subpleural scarring and calcified pleural plaque is seen in the anterior left lung. Subsolid pleural thickening is seen along the minor fissure on image #143. This measures up to 2.3 cm in length. Mediastinum: There is no mediastinal lymphadenopathy. Ruthann: Clear. Axillae: There is no axillary lymphadenopathy. Upper abdomen: A 2.4 cm hepatic hemangioma as seen on image #213. The liver appears stated ptotic. A mildly enlarged gastrohepatic node measures 11 mm short axis as seen on image #249. Skeletal structures: The skeletal structures are osteopenic. No lytic or blastic bony lesions are seen. Fusion hardware is noted at the cervicothoracic junction. Advanced arthritic change is seen in the shoulders. IMPRESSION: 1. Unremarkable CT angiogram of the thoracic aorta. 2. Emphysema. 3. There is no airspace consolidation typical for pneumonia or pleural effusion. 4. There is a focus of subsolid pleural thickening on the right minor fissure as above. This is not highly suspicious; however, a precautionary 6-month follow-up chest CT is recommended for reassessment. 5. Advanced coronary artery atherosclerosis. 6. Additional findings as above. ACT 112: Positive. There are findings on this exam that require communication between the performing entity and the patient following Patient Test Result Information Act ([place] Act 112) guidelines. Electronically signed by: Jerry Ni M.D. 04/15/2023 1:[address] 04/16/23 11:[address] DOSE: 688.24 mGy.cm HISTORY: Transient confusion and motor weakness TECHNIQUE: Multiaxial CT images of the head were performed without the use of intravenous contrast. Automated exposure control was utilized for this study. A dose lowering technique was utilized adhering to the principles of ALARA. Comparison: Head CT 04/22/2013. Findings: The paranasal sinuses and mastoid air cells are clear. The calvarium and skull base are intact. There is no mass, hematoma, midline shift, acute infarct. White matter hypodensity is nonspecific but suggestive of microvascular ischemic change. The ventricles and sulci demonstrate mild age-related involutional changes. Impression: No acute intracranial abnormality. Atrophy and microvascular ischemic changes. ACT 112: Negative or not required by law. Electronically signed by: Mehdi Fontaine M.D. 04/16/2023 12:36 PM Brain MRI 04/16/23 12:28 Brain MRI WITH AND WITHOUT CONTRAST HISTORY: dizziness, brain fog, headaches TECHNIQUE: Multiplanar multisequence MRI of the brain was performed both before and after the intravenous administration of contrast. COMPARISON STUDY: Head CT 04/16/2023. FINDINGS: There is no mass, hematoma, midline shift, or acute infarct. The paranasal sinuses are clear. The mastoid air cells are clear. The ventricles and sulci demonstrate mild age-related involutional changes. Scattered foci of T2 hyperintensity seen within the periventricular and subcortical white matter are nonspecific but suggestive of moderate microvascular ischemic changes. The major vascular flow voids at the skull base are well-maintained. No abnormal enhancement. IMPRESSION: No acute intracranial abnormality. Scattered foci of T2 hyperintensity seen within the periventricular and subcortical white matter are nonspecific but favor microvascular ischemic change. ACT 112: Negative or not required by law. Electronically signed by: Mehdi Fontaine M.D. 04/16/2023 3:55 PM Head CTA 04/16/23 19:28 Exam(s): CTA HEAD With Contrast IV Amt: OPTIRAY 320 114M EXAM: CT Angiography Head With Intravenous Contrast CLINICAL HISTORY: Reason for exam: confusion, dysarthria. TECHNIQUE: Axial computed tomographic angiography images of the head with intravenous contrast. Automated exposure control was utilized for the study. A dose lowering technique was utilized adhering to the principles of ALARA. Optiray 320 IV contrast is given. MIP reconstructed images were created and reviewed. CONTRAST: Patient received OPTIRAY 320 114M of IV contrast COMPARISON: No relevant prior studies available. FINDINGS: Right internal carotid artery: Patent. Right anterior cerebral artery: Patent. Right middle cerebral artery: Patent. Right posterior cerebral artery: Patent. Right vertebral artery: Patent. Left internal carotid artery: Patent. Left anterior cerebral artery: Patent. Left middle cerebral artery: Patent. Left posterior cerebral artery: Patent. Left vertebral artery: Patent. Basilar artery: Patent. Other: Mild atherosclerosis bilateral cavernous ICA, without significant stenosis. IMPRESSION: 1. No aneurysm or large vessel occlusion. Electronically signed by: Mariela Ryan M.D. 04/16/23 21:13 PM Neck CTA 04/16/23 19:28 Exam(s): CTA NECK With Contrast IV Amt: OPTIRAY 320 114M EXAM: CT Angiography Neck With Intravenous Contrast CLINICAL HISTORY: Reason for exam: confusion, dysarthria. TECHNIQUE: Routine carotid CT angiography protocol was performed with intravenous contrast. NASCET criteria using the distal ICAs for comparison were used for evaluation of stenoses. Automated exposure control was utilized for the study. A dose lowering technique was utilized adhering to the principles of ALARA. MIP reconstructed images were created and reviewed. CONTRAST: Patient received OPTIRAY 320 114M of IV contrast COMPARISON: None. FINDINGS: Right common carotid artery: Patent. Right internal carotid artery: Patent. Right vertebral artery: Patent. Left common carotid artery: Patent. Left internal carotid artery: Patent. Left vertebral artery: Patent. Left dominant system. Other: Mild atherosclerosis bilateral carotid bifurcation, without significant stenosis. Severe emphysema. Metal artifact from postsurgical change and hardware in the lower cervical spine. IMPRESSION: 1. No dissection, occlusion, or significant stenosis. CAROTID STENOSIS REFERENCE USING NASCET CRITERIA: % ICA stenosis = (1 - narrowest ICA diameter/diameter of distal cervical ICA) x 100. Mild - <50% stenosis. Moderate - 50-69% stenosis. Severe - 70-94% stenosis. Near occlusion - 95-99% stenosis. Occluded - 100% stenosis. Electronically signed by: Mariela Ryan M.D. 04/16/23 21:12 PM Discharge Instructions Given to Patient (Per Discharging Provider) Mr. Penn, You were seen and evaluated and per Neurology, it appears that you might have had a transient ischemic attack. They recommended the following: -take atorvastatin 40mg daily -take a daily baby aspirin 81mg -cut down on daily alcohol use as it can affect the temporal lobe in your brain -Zio patch that your primary care provider or Cardiology can order -follow up with neurology as an outpatient You were also seen by Cardiology for chest pain. They recommended the following: -continue with atorvastatin 40mg and baby aspirin as noted above -outpatient stress test -cardiology follow up -consider addition of amlodipine 5mg to your lisinopril 10mg for additional blood pressure control (since your blood pressure was within normal limits on the day of discharge, recommend that you follow up with your primary care provider for this if needed). We also noted emphysema and an enlarged gastrohepatic lymph node that your primary care provider will follow up with you about. We contacted Urology, Dr. Krishnamurthy and they will re-schedule your outpatient Urogram with followup with Dr Krishnamurthy in mid April. Please keep close follow up with your primary care provider after discharge. Please do not hesitate to come back to the emergency room if your symptoms worsen or return. It was a pleasure taking care of you while you were here. Total Time Total Time Spent Total Time Spent (In Minutes): > 30 minutes
== END 2023-04-17 14:56 | disposition home or self-care (01) | DRG 313 ==
LOC: ED 12:16 → 4W 15:11 → SUATTDRO 15:11 → 4W 16:05